=== PATIENT | female | born 1945 | race Caucasian/White ===

== ENCOUNTER → 2017-07-14 | Outpatient (CLI) | payer MEDICARE, BC ==
[2017-07-14 08:04] LABS: Calcium 10.1 mg/dL (8.4-10.2); Potassium 4.8 mmol/L (3.5-5.1); Total Bilirubin 0.9 mg/dL (0.2-1.3); Total Protein 7.2 g/dL (6.3-8.2)
== END | disposition home or self-care (01) ==
LOC: LABWHC1 07:26
PROVIDERS: ATTEND Internal Medicine Interventional Cardiology
DX: E78.2 Mixed hyperlipidemia (principal)
CPT/HCPCS: 36415; 80053; 80061

== ENCOUNTER → 2018-02-09 | Outpatient (CLI) | payer MEDICARE, BC ==
[2018-02-09 09:39] LABS: Albumin 4.3 g/dL (3.5-5.0); Calcium 10.2 mg/dL (8.4-10.2); Potassium 4.4 mmol/L (3.5-5.1); Total Bilirubin 0.6 mg/dL (0.2-1.3); Total Protein 7.1 g/dL (6.3-8.2)
== END | disposition home or self-care (01) ==
LOC: LABWHC1 08:33
PROVIDERS: ATTEND Internal Medicine Interventional Cardiology
DX: E78.2 Mixed hyperlipidemia (principal)
CPT/HCPCS: 36415; 80053; 80061

== ENCOUNTER → 2019-02-06 | Outpatient (CLI) | payer MEDICARE, BC ==
[2019-02-06 16:31] LABS: Albumin 4.5 g/dL (3.80-4.90); Albumin/Globulin Ratio 2.05 (1.60-3.17); Calcium 10.2 mg/dL (8.7-10.3); Globulin 2.2 g/dL (1.6-3.3); LDL Cholesterol,Calculated 115.8 mg/dL (0.0-131.0); Potassium 4.2 mmol/L (3.5-5.5); Total Bilirubin 0.7 mg/dL (0.2-1.2); Total Protein 6.7 g/dL (6.2-8.2); VLDL Calculation 29.2 mg/dL (5.00-40.00)
== END ==
LOC: LABWHC1 08:43
PROVIDERS: ATTEND Nurse Practitioner Adult Health
DX: I48.2 Chronic atrial fibrillation (principal); E78.2 Mixed hyperlipidemia
CPT/HCPCS: 36415; 80053; 80061

== ENCOUNTER → 2019-08-26 | Outpatient (CLI) | payer MEDICARE, BC ==
[2019-08-26 17:16] LABS: Chol/HDL Ratio 5.46; LDL Cholesterol,Calculated 118.4 mg/dL (0.0-131.0); VLDL Calculation 37.6 mg/dL (5.00-40.00)
== END | disposition home or self-care (01) ==
LOC: LABWHC1 08:07
PROVIDERS: ATTEND Nurse Practitioner Adult Health
DX: E78.2 Mixed hyperlipidemia (principal)
CPT/HCPCS: 36415; 80061; 84450; 84460

== ENCOUNTER → 2019-11-26 | Outpatient (CLI) | payer MEDICARE, BC | END | disposition home or self-care (01) | LOC: LABPAT 09:17 | PROVIDERS: ATTEND Orthopaedic Surgery | DX: Z01.812 Encounter for preprocedural laboratory examination (principal) | CPT/HCPCS: 87070 ==

== ENCOUNTER 2019-12-07 06:16 | Inpatient (IN) | payer MEDICARE, BC ==
[2019-11-29 15:02] VITALS: BMI 40.7
--- NOTE | 2019-12-06 10:24 | HP ---
HISTORY AND PHYSICAL CHIEF COMPLAINT: Left shoulder pain. HISTORY OF PRESENT ILLNESS: The patient is a 74-year-old, right-hand dominant, retired female who presents with progressive left shoulder pain over the past several years. She had a previous arthroscopy in 2011. She has pain with any attempted use in addition to significant pain at night. She has tried previous injections and medications with minimal relief. PAST MEDICAL HISTORY: Significant for hypertension, heart disease, atrial fibrillation, osteoarthrosis. PAST SURGICAL HISTORY: Significant for total hip arthroplasty, bilateral total knee arthroplasty, left shoulder arthroscopy, pancreatic surgery, and hysterectomy. CURRENT MEDICATIONS: 1. Atenolol. 2. Digitek. 3. Hyzaar. 4. Lipitor. 5. Mobic. 6. Tramadol. 7. Warfarin. 8. TriCor. ALLERGIES: She has allergies to CODEINE. FAMILY HISTORY: Significant for cancer and Alzheimer's. SOCIAL HISTORY: Significant for previous tobacco use. REVIEW OF SYSTEMS: Sixteen-point review of systems otherwise reviewed and is noncontributory. PHYSICAL EXAMINATION: On examination, the patient is approximately 5 feet 3 inches, 230 pounds of endomorphic habitus. HEENT exam is nonfocal. Neck is supple. On examination of her left shoulder, she is tender about the anterior glenohumeral joint and subacromial space. She has moderate subacromial crepitus. Active range of motion of the left shoulder, forward elevation 40 degrees, external rotation with arm at side 20 degrees, internal rotation to the buttock. Passively I am able to forward elevate her to 80 degrees. Motor strength is 5 minus over 5 for external rotation with the arm at the side. Impingement test, Neer test, and Speed test are positive. She does have some lymphedema in both upper extremities. Her distal neurovascular exam otherwise appears intact in the left upper extremity. X-rays of the left shoulder obtained in the office show irregularity of the humeral head with probable collapse. Previous acromioplasty and distal clavicular resection are noted. IMPRESSION: 1. 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 2. History of atrial fibrillation/pacemaker placement. 3. Medical comorbidities. RECOMMENDATIONS: I talked to the patient at length regarding her condition and treatment options. At this point, she is quite limited because of pain despite previous conservative measures. After thorough discussion, she opts to proceed with surgery. We will plan to proceed with left total shoulder arthroplasty versus reverse total shoulder arthroplasty. Risks and benefits were discussed at length in layman's terms. We will reinstitute her Coumadin postoperatively. She did not undergo preoperative medical and cardiac clearance. JOSE / INGRIDN: [id number] /
[~2019-12-07 06:16] MED LIST: ACETAMINOPHEN TAB 500 MG TAB PO ONE; DEXAMETHASONE SOD PHOSPHATE 10 MG/ML 1 ML VIAL IV ONE; HYDROmorphone 0.5 MG/0.5 ML SYRINGE IVP PRN; LIDOCAINE 1% 20 ML VIAL (10MG/ML) FOR IV START INTRADERMA PRN; MELOXICAM 7.5 MG TAB PO ONE; MIDAZOLAM 2 MG/2 ML VIAL IV PRN; ONDANSETRON 4 MG/2 ML VIAL IVP ONE; SCOPOLAMINE 1.5MG/72HR PATCH TRANSDERM ONE; TRANEXAMIC ACID 1,000 MG in SODIUM CHLORIDE 0.9% 100 ML IVPB ONE
[2019-12-07] MEDS: LACTATED RINGERS 1,000 ML IV SCH (07:20)
[2019-12-07] MEDS ORDERED: fentaNYL (PF) 50 MCG/ML 2 ML AMP IVP ONE (07:25)
[2019-12-07 08:02] LABS: INR 1.2 (<1.2); Prothrombin Time 12.9 sec (9.0-12.0)
[2019-12-07] MEDS ORDERED: NEOSTIGMINE 1 MG/ML 10 ML VIAL ONE (08:05)
[2019-12-07] MEDS ORDERED: ROPIVACAINE 5 MG/ML 30 ML VIAL ONE (08:05)
[2019-12-07] MEDS ORDERED: PHENYLEPHRINE-0.9% NACL SYG 1 MG/10 ML SYRINGE ONE (08:05)
[2019-12-07] MEDS ORDERED: LIDOCAINE 1% INJ 10MG/ML (20 ML MDV) ONE (08:05)
[2019-12-07] MEDS ORDERED: LIDOCAINE 2%-EPI 1:100,000 20 ML VIAL ONE (08:05)
[2019-12-07] MEDS ORDERED: ROCURONIUM BROMIDE 10 MG/ML 10 ML VIAL IV ONE (08:05)
[2019-12-07] MEDS ORDERED: PROPOFOL 10 MG/ML 20 ML VIAL IV ONE (08:05)
[2019-12-07] MEDS ORDERED: GLYCOPYRROLATE 0.2 MG/ML 2 ML VIAL ONE (08:05)
[2019-12-07] MEDS ORDERED: SUCCINYLCHOLINE CHLORIDE VIAL 200 MG/10 ML VIAL IV ONE (08:05)
[2019-12-07] MEDS ORDERED: ceFAZolin 3,000 MG in SODIUM CHLORIDE 0.9% IRRIGATIO 3,000 ML IRRIGATION ONE (08:47)
[2019-12-07] MEDS ORDERED: SENNOSIDES-DOCUSATE SODIUM 1 EACH TAB PO PRN (09:57)
[2019-12-07] MEDS ORDERED: HYDROmorphone 0.5 MG/0.5 ML SYRINGE IVP PRN (09:57)
[2019-12-07] MEDS ORDERED: HYDROcodone/APAP 5-325MG 1 EACH TAB PO PRN ×2 (09:57)
[2019-12-07] MEDS ORDERED: ONDANSETRON 4 MG/2 ML VIAL IVP PRN (09:57)
--- NOTE | 2019-12-07 10:28 | P.OP ---
Date of Procedure: 12/07/19 Preoperative Diagnosis: Left glenohumeral joint arthritissevere Postoperative Diagnosis: Same Procedure(s) Performed: Left total shoulder arthroplasty Implants: [employer] size 8 press-fit humeral stem with size 1 body, 40 x 18 mm eccentric humeral head, 40 mm cemented pegged glenoid. Anesthesia: yoshi RIZZO Surgeon: See Youngblood Assistant Food Service Manager #1: Abebe Valenzuela Estimated Blood Loss (ml): 200 Pathology: other (Humeral head) Condition: stable Disposition: PACU Indications for Procedure: The patient is a 74-year-old female who presents with progressive left shoulder pain secondary to arthritis which is likely a combination of psoriatic and osteoarthrosis despite conservative measures. A discussion of the risks and benefits of operative intervention was made with patient and her . She opted to proceed. Specific risks of surgery to include infection, neurovascular injury, development of blood clots, possible component loosening, possible instability, possible fracture and need for subsequent procedures was discussed. Informed consent was obtained. Operative Findings: As below Description of Procedure: The patient was brought to the operating room, and after induction of general anesthesia was placed in the beachchair position. The bony prominences were appropriately padded. The left upper extremity was prepped and draped in normal fashion. A deltopectoral incision was then made lateral to the coracoid process extending approximately 12 cm. The skin was incised sharply. Subcutaneous tissues were divided bluntly. Electrocautery was used for hemostasis. The deltopectoral interval was identified and the cephalic vein gently retracted laterally with the deltoid. Subdeltoid adhesions were bluntly dissected. A self-retaining retractor was placed. The clavipectoral fascia was opened and the conjoined tendon gently retracted medially. The upper one third of the pectoralis major was released to help facilitate exposure. The biceps was identified and the sheath was opened. The rotator interval was opened. The biceps was tenotomized and allowed to retract distally. The lesser tuberosity osteotomy was performed with a small sagittal saw. This completed with an osteotome. The humeral head was then exposed releasing the capsule off the humeral neck. The shoulder was gently dislocated. A starting hole was made in the head in line with the humeral shaft. The shaft was reamed by hand up to 8 mm. There was good distal chatter. The cutting guide was placed planning on 8 cut flush with the rotator cuff insertion and 30 of retroversion. The cutting block was pinned in place. The humeral head cut was then made. This measured most appropriately at a 40 mm x 18 mm. A posterior glenoid retractor was placed. The glenoid was then exposed releasing the labrum from the 6:00 to 12 o'clock position. Residual labral tissue was removed. The glenoid sized most appropriate 40 mm. A guidewire was then inserted planning on the appropriate version. The glenoid was reamed down to a bleeding bony surface. The central peg hole was drilled. The alignment guide was placed in the peripheral peg holes drilled. The trial size a mm glenoid was placed and was fully seated. There was good anterior to posterior and inferior to superior fit. The trial component was removed. Pulsatile lavage was utilized. The bony surface was dried. The peripheral peg holes were then pressurized with cement utilizing a syringe. Excess cement was removed. A central peg glenoid was then placed and was fully seated. This was gently impacted. This was held in place until the cement had sufficiently hardened. Attention was then paid again towards preparing the proximal humerus. The appropriate broach was placed in 30 of retroversion and was fully seated. An eccentric 40 mm x 18 mm humeral head was placed. The shoulder was gently reduced. It was taken through a range of motion. It was felt to be stable in flexion and extension with internal and external rotation. I felt there was adequate protestant of soft tissue tension. The shoulder was gently dislocated. The trial components were then removed. A #2 Ethibond was placed laterally for reattachment of the lesser tuberosity. The humeral stem was inserted in 30 of retroversion and was fully seated. There was good rotational stability. The eccentric 40 mm x 18 mm humeral head was gently impacted. The shoulder was then gently reduced and taken through range of motion and was felt to be stable. Pulsatile lavage was utilized. Lesser tuberosity was reattached utilizing #2 Ethibond suture. The rotator interval was closed with #2 Ethibond suture. She had minimal drainage at this point therefore a deep drain was not placed. The deltopectoral interval was closed with interrupted 2-0 Vicryl sutures. The subcu tissues were reapproximated with interrupted 2-0 Vicryl sutures. The skin was reapproximated with 3-0 subcuticular Prolene suture. Steri-Strips were applied. A sterile dressing was applied in addition to a sling. The patient was then awoken from general anesthesia and transferred to recovery room in good condition. Blood l oss was estimated at 200 mL. No complications were incurred. Sponge and needle counts were correct at the end the case. Checo SCALES assisted during the major components the case to include exposure, bony resection, implantation, and closure.
[2019-12-07] MEDS ORDERED: LACTATED RINGERS 1,000 ML IV ONE ×2 (10:45)
--- NOTE | 2019-12-07 11:01 | XR ---
EXAMINATION TYPE: XR shoulder complete LT DATE OF EXAM: 12/07/2019 COMPARISON: NONE HISTORY: Postop TECHNIQUE: 2 view submitted FINDINGS: Postsurgical change appears in near-anatomic alignment. Cardiac device incidentally noted. Soft tissue edema and emphysema noted. IMPRESSION: Postoperative change
[2019-12-07 11:21] LABS: Basophils # (A) 0.1 k/uL (0-0.2); Basophils % (A) 1 %; Eosinophils # (A) 0.3 k/uL (0-0.7); Eosinophils % (A) 3 %; HCT 37.4 % (34.0-46.0); HGB 12.1 gm/dL (11.4-16.0); Lymphocytes # (A) 1.9 k/uL (1.0-4.8); Lymphocytes % (A) 19 %; MCH 29.4 pg (25.0-35.0); MCHC 32.3 g/dL (31.0-37.0); MCV 90.9 fL (80.0-100.0); Monocytes # (A) 0.6 k/uL (0-1.0); Monocytes % (A) 6 %; Neutrophils # (A) 6.8 k/uL (1.3-7.7); Neutrophils % (A) 70 %; Platelet Count 223 k/uL (150-450); RBC 4.11 m/uL (3.80-5.40); RDW 14.1 % (11.5-15.5); WBC 9.8 k/uL (3.8-10.6)
--- NOTE | 2019-12-07 12:18 | P.ANPRN ---
Procedure Note - Anesthesia - Nerve Block Performed Left Interscalene Single Time Out Performed: Yes ([id number]) Date of Procedure: 12/07/19 Procedure Start Time: : Procedure Stop Time: Location of Patient: PreOp Indication: Acute Post-Operative Pain, Requested by Surgeon Specifically requested for management of pain by : See Youngblood Sedation Type: Sedate with meaningful contact maintained Preparation: Sterile Prep Position: Supine Catheter: None Needle Types: Pajunk Needle Gauge: 21 Ultrasound used to visualize needle placement: Yes Ultrasound used to observe medication spread: Yes Injectate: Other (see comment) (Ropi 0.25% 15cc and Lido 2% with epi 15cc) Blood Aspirated: No Pain Paresthesia on Injection Noted: No Resistance on Injection: Normal Image Stored and Saved: Yes Events: Uneventful and Well Tolerated
[2019-12-07] MEDS: traMADol 50 MG TAB PO SCH ×3 (14:49→22:43)
[2019-12-07] MEDS ORDERED: WARFARIN 5 MG TAB PO ONE (18:00)
[2019-12-07 22:36] LABS: INR 1.2 (<1.2); Prothrombin Time 12.1 sec (9.0-12.0)
[2019-12-08] MEDS: LACTATED RINGERS 1,000 ML IV SCH (05:27)
[2019-12-08 08:11] VITALS: BP 135/104; PULSE 83; RESP 17; TEMP 98
[2019-12-08] MEDS: traMADol 50 MG TAB PO SCH (08:27)
[2019-12-08] MEDS ORDERED: ENOXAPARIN 40 MG/0.4 ML SYRINGE SQ SCH (09:00)
[2019-12-08 09:15] LABS: Basophils # (A) 0.1 k/uL (0-0.2); Basophils % (A) 1 %; Eosinophils % (A) 0 %; HCT 36.1 % (34.0-46.0); Lymphocytes # (A) 1.1 k/uL (1.0-4.8); Lymphocytes % (A) 10 %; MCH 29.4 pg (25.0-35.0); MCHC 33.2 g/dL (31.0-37.0); MCV 88.5 fL (80.0-100.0); Mean Platelet Volume 9.5; Monocytes # (A) 0.6 k/uL (0-1.0); Monocytes % (A) 5 %; Neutrophils # (A) 9.6 k/uL (1.3-7.7); Neutrophils % (A) 84 %; Platelet Count 255 k/uL (150-450); RBC 4.08 m/uL (3.80-5.40); WBC 11.5 k/uL (3.8-10.6)
--- NOTE | 2019-12-08 11:51 | P.PN ---
Subjective Progress Note Date: 12/08/19 Principal diagnosis: status post left total shoulder arthroplasty Patient evaluated at bedside, she is resting comfortably. She has no chest pain or shortness of breath. Pain is well-controlled at this time. Objective - Vital Signs Vital signs: Vital Signs Temp 98.0 F 12/08/19 07:00 Pulse 83 12/08/19 07:00 Resp 17 12/08/19 07:00 BP 135/104 12/08/19 07:00 Pulse Ox 98 12/08/19 07:00 Intake & Output 12/07/19 12/08/19 12/08/19 18:59 06:59 18:59 Intake Total 1501 20 150 Output Total 200 Balance 1301 20 150 Weight 101.8 kg Intake: IV 1501 Oral 20 150 Output: Estimated Blood Loss 200 - Exam Left lower extremity: Postoperative bandages in good position and condition. Minimal soft tissue swelling or ecchymosis present. Sensation to light touch is intact, radial pulses 2+ - Labs CBC & Chem 7: 12/08/19 08:10 Labs: Abnormal Lab Results - Last 24 Hours (Table) 12/07/19 12/08/19 Range/Units 21:57 08:10 WBC 11.5 H (3.8-10.6) k/uL Neutrophils # 9.6 H (1.3-7.7) k/uL PT 12.1 H (9.0-12.0) sec INR 1.2 H (<1.2) Assessment and Plan Plan: Assessment: Postoperative day #1 status post left total shoulder arthroplasty Plan: Pain control, discharge on oral medication GI and DVT prophylaxis, resume Coumadin Wound care instructions discussed Activity level instructions discussed Medical recommendations Plan for discharge home today Time with Patient: Less than 30
--- NOTE | 2019-12-08 11:58 | P.DS ---
Providers Date of admission: 12/07/19 06:16 Expected date of discharge: 12/08/19 Attending physician: See Youngblood Consults: 12/07/19 10:03 Consult Physician Routine Consulting Provider: Kt Hernandez Reason/Comments: Medical Management Do you want consulting provider notified?: Yes Primary care physician: Kt Hernandez Hospital Course: Date of admission: 12/07/2019 Date of discharge: 12/08/2019 Admission diagnosis: Status post left total shoulder arthroplasty Discharge diagnosis: Same Attending physician: Dr. Youngblood Surgical procedures: Left total shoulder arthroplasty Brief history: Patient is a 74-year-old female with a history of progressive primary left shoulder osteoarthritis. She has failed conservative treatment measures and has opted to proceed with a elective left total shoulder arthroplasty. Hospital course: Details of patient's surgery can be found in operative report. Patient tolerated the procedure well and was subsequently transported to [facility] floor. Patient's orthopeidc and medical care was provided daily. Patient had daily laboratory tests performed for evaluation of overall blood counts. Patient had daily physical therapy to include strengthening range of motion as well as education with walker ambulation. Patient was treated with Lovenox and Coumadin for their postoperative DVT prophylaxis during their inpatient stay. Patient was noted to have a relatively uneventful postoperative course. Patient reported satisfactory pain control with oral pain medications by postoperative day 0. Patient showed satisfactory progress with physical therapy. Patient moved steadily through the program and had no difficulty meeting the goals by postoperative day 1. Given patient's otherwise satisfactory course and having met physical therapy goals, plan is to discharge patient home on postoperative day 1. Discharge condition/disposition: Patient will be discharged home in stable condition. Discharge medications: Instructions are given on resumption of patient's normal daily medications per primary care recommendation, in addition patient will be prescribed [place] 5 mg/325 mg. Discharge instructions: 1. Wound care and infection precautions, keep incision dry and covered while showering, no lotions, creams, moisturizers. No soaking, tubs, pools, hottubs. Do not scrub over the incision. 2. Utilize arm sling as needed 3. Ice and elevate when necessary. Do not exceed 20 minutes per hour with ice pack. 4. Utilize compression sleeve until seen at first follow up appointment. 7. Pain meds and anticoagulants per prescription. 8. Pain medication has potential to cause constipation. Increase oral fluid and fiber intake. Contact primary care provider if you have not had a bowel movement within 48 hours after discharge 9. No anti-inflammatory medication until discussed at first post operative visit, this including Motrin, Aleve, Mobic, Diclofenac. 10. Follow up in office at 2 weeks postop with Checo Valenzuela PA-C 11. Follow up with your primary care doctor 7-10 days after discharge. 12. Contact [facility] with any questions, . Procedures: Left total shoulder arthroplasty Patient Condition at Discharge: Good Plan - Discharge Summary Discharge Rx Participant: No New Discharge Prescriptions: New Sennosides-Docusate Sodium [Senokot-S] 2 each PO HS PRN #0 tab PRN Reason: Constipation Hydrocodone/Acetaminophen [[place] 5-325] 1 each PO Q6HR PRN #28 tab PRN Reason: Pain Continue Warfarin Sodium 2.5 mg PO WE Warfarin [Coumadin] 5 mg PO SUMOTUTHFRSA Losartan/Hydrochlorothiazide [Losartan-Hctz 100-25 mg Tab] 1 tab PO HS Digoxin [Digitek] 125 mcg PO DAILY Atorvastatin [Lipitor] 80 mg PO HS traMADol HCl [Ultram] 50 mg PO BID Metoprolol Tartrate [Lopressor] 50 mg PO BID Ezetimibe [Zetia] 10 mg PO DAILY Meloxicam 15 mg PO DAILY Clobetasol Propionate [Temovate 0.05% Cream] 1 applic TOPICAL SUSA Calcipotriene 1 applicate TOPICAL MOTUWETHFR Discharge Medication List Atorvastatin [Lipitor] 80 mg PO HS 08/30/15 [History] Digoxin [Digitek] 125 mcg PO DAILY 08/30/15 [History] Losartan/Hydrochlorothiazide [Losartan-Hctz 100-25 mg Tab] 1 tab PO HS 08/30/15 [History] Warfarin Sodium 2.5 mg PO WE 08/30/15 [History] Warfarin [Coumadin] 5 mg PO SUMOTUTHFRSA 08/30/15 [History] Calcipotriene 1 applicate TOPICAL MOTUWETHFR 11/29/19 [History] Clobetasol Propionate [Temovate 0.05% Cream] 1 applic TOPICAL SUSA 11/29/19 [History] Ezetimibe [Zetia] 10 mg PO DAILY 11/29/19 [History] Meloxicam 15 mg PO DAILY 11/29/19 [History] Metoprolol Tartrate [Lopressor] 50 mg PO BID 11/29/19 [History] traMADol HCl [Ultram] 50 mg PO BID 11/29/19 [History] Hydrocodone/Acetaminophen [[place] 5-325] 1 each PO Q6HR PRN #28 tab 12/08/19 [Rx] Sennosides-Docusate Sodium [Senokot-S] 2 each PO HS PRN #0 tab 12/08/19 [Rx] Follow up Appointment(s)/Referral(s): Kt Hernandez DO [Primary Care Provider] - 12/16/19 1:00 pm Abebe Valenzuela PAC [PHYSICIAN SHOE DYER] - 12/22/19 2:50 pm Ambulatory/Diagnostic Orders: Prothrombin Time INR [LAB.AMB] Time Frame: 12/10/19, Location: None Selected Patient Instructions/Handouts: Shoulder Arthroplasty (DC) Activity/Diet/Wound Care/Special Instructions: Orthopedic discharge instructions: 1. Resume home medication of discharge 2. Pain medication as needed 3. Keep incision covered and dry while showering 4. Utilize arm sling 5. Ice and elevate often 6. Plan for follow-up at [facility] 2 weeks Discharge Disposition: HOME WITH HOME HEALTH SERVICES
[2019-12-08] MEDS ORDERED: WARFARIN 5 MG TAB PO ONE (18:00)
--- NOTE | 2019-12-09 12:46 | P.CONS ---
History of Present Illness - Reason for Consult Consult date: 12/08/19 Medical management HTN, Requesting physician: See Youngblood - Chief Complaint Worsening Left shoulder pain - History of Present Illness This is a 74-year-old female with history of atrial fibrillation, CVA/TIA, hyperlipidemia, hypertension, osteoarthritis, psoriasis, permanent pacemaker, former nicotine dependence ,progressive left shoulder pain secondary to osteoarthritis, failed outpatient treatment,status post left total shoulder arthroplasty. Tolerated procedure well. Wearing a shoulder sling. INR 1.2. Good diet intake with no nausea vomiting or diarrhea. Passing flatus, no bowel movement. Denies chest pain, palpitations or shortness of breath. Pain cont rolled. Denies lightheadedness, dizziness or focal deficits. Review of Systems Constitutional: Denied any fatigue denied any fever. Cardio vascular: denied any chest pain, palpitations Gastrointestinal denied any nausea vomiting Pulmonary: Denied any shortness of breath cough Neurologic denied any new focal deficits ROS Statement: Those systems with pertinent positive or pertinent negative responses have been documented in the HPI. ROS Other: All systems not noted in ROS Statement are negative. 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 PSORIASIS. PT USES SCD'S BILAT LEGS TWICE A DAY FOR 1 HOUR EACH TIME History of Any Multi-Drug Resistant Organisms: None Reported Past Surgical History: Hysterectomy, Joint Replacement, Orthopedic Surgery, Pacemaker Additional Past Surgical History / Comment(s): BILAT TKA, 09-02-16. TOTAL RT HIP. LT SHOULDER SX. BILAT CATARACTS. COLONOSCOPY. GENERATOR CHANGES TO PACEMAKER X 2. KNEE SCOPE. D & C Past Anesthesia/Blood Transfusion Reactions: Motion Sickness Additional Past Anesthesia/Blood Transfusion Reaction / Comm: VERTIGO Type of Cardiac Device: Permanent Pacemaker Device Placement Date:: 1996 Past Psychological History: No Psychological Hx Reported Smoking Status: Former smoker Past Alcohol Use History: None Reported Additional Past Alcohol Use History / Comment(s): SMOKES FROM AGE [age] THEN QUIT Past Drug Use History: None Reported - Past Family History Mother Family Medical History: No Reported History Sister(s) Family Medical History: Cancer Father Family Medical History: No Reported History Additional Family Medical History / Comment(s): ELECTROCUTED AT AGE 38 Medications and Allergies Home Medications Medication Instructions Recorded Confirmed Type Atorvastatin [Lipitor] 80 mg PO HS 08/30/15 12/07/19 History Digoxin [Digitek] 125 mcg PO DAILY 08/30/15 12/07/19 History Losartan/Hydrochlorothiazide 1 tab PO HS 08/30/15 12/07/19 History [Losartan-Hctz 100-25 mg Tab] Warfarin Sodium 2.5 mg PO WE 08/30/15 12/07/19 History Warfarin [Coumadin] 5 mg PO SUMOTUTHFRSA 08/30/15 12/07/19 History Calcipotriene 1 applicate TOPICAL MOTUWETHFR 11/29/19 12/07/19 History Clobetasol Propionate [Temovate 1 applic TOPICAL SUSA 11/29/19 12/07/19 History 0.05% Cream] Ezetimibe [Zetia] 10 mg PO DAILY 11/29/19 12/07/19 History Meloxicam 15 mg PO DAILY 11/29/19 12/07/19 History Metoprolol Tartrate [Lopressor] 50 mg PO BID 11/29/19 12/07/19 History traMADol HCl [Ultram] 50 mg PO BID 11/29/19 12/07/19 History Hydrocodone/Acetaminophen [[place] 1 each PO Q6HR PRN #28 tab 12/08/19 Rx 5-325] Sennosides-Docusate Sodium 2 each PO HS PRN #0 tab 12/08/19 Rx [Senokot-S] Allergies Allergy/AdvReac Type Severity Reaction Status Date / Time codeine Allergy Rash/Hives Verified 12/07/19 07:05 Physical Exam Vitals: Vital Signs Temp Pulse Pulse Resp BP BP Pulse Ox 12/08/19 07:00 98.0 F 83 17 135/104 98 12/08/19 05:28 80 133/97 96 12/08/19 03:57 175/75 12/08/19 02:27 181/83 12/08/19 01:18 98 F 96 18 198/70 96 12/07/19 19:56 97.7 F 85 16 145/93 92 L 12/07/19 15:00 97.7 F 70 16 153/74 92 L 12/07/19 13:30 70 16 154/71 96 12/07/19 13:00 62 16 152/83 95 12/07/19 12:30 60 16 152/67 96 12/07/19 12:01 57 L 14 150/65 94 L 12/07/19 11:45 64 16 149/63 95 12/07/19 11:30 57 L 16 147/65 95 12/07/19 11:04 73 16 157/73 95 12/07/19 10:49 62 18 163/72 96 12/07/19 10:34 75 16 143/73 96 12/07/19 10:19 97.0 F L 76 18 143/74 93 L Intake and Output 12/07/19 12/08/19 12/08/19 22:59 06:59 14:59 Intake Total 20 150 Balance 20 150 Intake: Oral 20 150 PHYSICAL EXAM: VITAL SIGNS: As above GENERAL: Sitting up in bed, no acute distress HEENT: Conjunctivae normal. eyes normal. Oral mucosa moist NECK: No JVD. No thyroid enlargement. No LNs. Left shoulder sling present. CARDIOVASCULAR: S1, S2 regular. No murmur RESPIRATION: Breath sounds diminished in the bases. No rhonchi or crackles. No bronchial breathing. ABDOMEN: Soft, nontender . No guarding. no masses palpable. No ascites, No hepatosplenomegaly.Bowel sounds heard. PSYCHIATRY: Alert and oriented X3, mood and affect normal. NERVOUS SYSTEM: Cranial N 2-12 grossly normal. Moves all 4 limbs. No focal deficits. Strength and sensation grossly intact.. Skin: no rash Lymphatic system. No LN neck axilla. Results CBC & Chem 7: 12/08/19 08:10 Labs: Abnormal Lab Results - Last 24 Hours (Table) 12/07/19 12/08/19 Range/Units 21:57 08:10 WBC 11.5 H (3.8-10.6) k/uL Neutrophils # 9.6 H (1.3-7.7) k/uL PT 12.1 H (9.0-12.0) sec INR 1.2 H (<1.2) Assessment and Plan Assessment: Left shoulder arthroplasty secondary to progressive severe left shoulder osteoarthritis, failed conservative measures. Chronic atrial fibrillation Pacemaker History of CVA, TIA Hyperlipidemia Hypertension psoriasis Former nicotine dependence Vertigo Plan: Continue on current medication regime ,monitoring and symptomatic treatment. Pain management as per orthopedic surgery. Discharge planning in progress. Resume anticoagulation with Coumadin, when cleared by orthopedics. Follow-up with PCP in one week. The impression and plan of care has been dictated as directed. : I performed a history and examination of this patient, discussed the same with the dictator. I agree with the dictator's note ,documented as a scribe. Any additional findings or plans will be noted.
== END 2019-12-08 12:49 | disposition home or self-care (01) | DRG 483 ==
LOC: 2ORMAIN 06:16 → 4SSUR 13:42
PROVIDERS: ADMIT Orthopaedic Surgery; ATTEND Orthopaedic Surgery
PROC: 0RRK0JZ Replacement of Left Shoulder Joint with Synthetic Substitute, Open Approach (ICD-10-PCS; principal; 2019-12-07 08:00)
DX: M19.012 Primary osteoarthritis, left shoulder (principal); I48.19 Other persistent atrial fibrillation; L40.50 Arthropathic psoriasis, unspecified; I08.3 Combined rheumatic disorders of mitral, aortic and tricuspid valves; E78.2 Mixed hyperlipidemia; I10 Essential (primary) hypertension; L40.9 Psoriasis, unspecified; Z79.01 Long term (current) use of anticoagulants; Z79.1 Long term (current) use of non-steroidal anti-inflammatories (NSAID); Z79.891 Long term (current) use of opiate analgesic; Z79.899 Other long term (current) drug therapy; Z96.653 Presence of artificial knee joint, bilateral; Z95.0 Presence of cardiac pacemaker; Z87.891 Personal history of nicotine dependence; Z96.641 Presence of right artificial hip joint; Z90.710 Acquired absence of both cervix and uterus; Z80.9 Family history of malignant neoplasm, unspecified; Z82.0 Family history of epilepsy and other diseases of the nervous system
CPT/HCPCS: 64415; 76942; 85025; 85610; 88300

== ENCOUNTER → 2020-06-27 | Outpatient (CLI) | payer MEDICARE, BC ==
[2020-06-27 16:32] LABS: African American GFR (CKD) 57.3 (60.0-200.0); Albumin 4.5 g/dL (3.80-4.90); Albumin/Globulin Ratio 2.05 (1.60-3.17); Anion Gap 8.6 mmol/L (4.00-12.00); BUN/Creat Ratio 27.27 Ratio (12.00-20.00); Calcium 10.3 mg/dL (8.7-10.3); Carbon Dioxide 26.4 mmol/L (21.6-31.8); Chol/HDL Ratio 5.19; Globulin 2.2 g/dL (1.6-3.3); LDL Cholesterol,Calculated 59.8 mg/dL (0.0-131.0); Non-African American GFR(CKD) 49.4 (60.0-200.0); Potassium 4.6 mmol/L (3.5-5.5); Total Bilirubin 1.2 mg/dL (0.2-1.2); Total Protein 6.7 g/dL (6.2-8.2); VLDL Calculation 53.2 mg/dL (5.00-40.00)
== END | disposition home or self-care (01) ==
LOC: LABWHC1 10:13
PROVIDERS: ATTEND Nurse Practitioner Adult Health
DX: I10 Essential (primary) hypertension (principal); E78.2 Mixed hyperlipidemia; I48.21 Permanent atrial fibrillation
CPT/HCPCS: 36415; 80053; 80061

== ENCOUNTER → 2021-07-18 | Outpatient (CLI) | payer MEDICARE, BC ==
[2021-07-18 18:26] LABS: African American GFR (CKD) 56.9 (60.0-200.0); Albumin 4.9 g/dL (3.80-4.90); Albumin/Globulin Ratio 1.96 (1.60-3.17); Anion Gap 11.7 mmol/L (4.00-12.00); BUN/Creat Ratio 32.73 Ratio (12.00-20.00); Calcium 10.1 mg/dL (8.7-10.3); Carbon Dioxide 26.3 mmol/L (21.6-31.8); Chol/HDL Ratio 5.27; Globulin 2.5 g/dL (1.6-3.3); Non-African American GFR(CKD) 49.1 (60.0-200.0); Potassium 4.6 mmol/L (3.5-5.5); Total Bilirubin 1.3 mg/dL (0.2-1.2); Total Protein 7.4 g/dL (6.2-8.2)
[2021-07-18 19:54] LABS: Digoxin 0.8 ng/mL (0.8-2.0)
== END | disposition home or self-care (01) ==
LOC: LABWHC1 08:22
PROVIDERS: ATTEND Internal Medicine Interventional Cardiology
DX: E78.2 Mixed hyperlipidemia (principal)
CPT/HCPCS: 36415; 80053; 80061; 80162

== ENCOUNTER → 2022-02-04 | Outpatient (CLI) | payer MEDICARE, BC ==
[2022-02-04 17:35] LABS: ALT 23 U/L (8-44); AST 49 U/L (13-35); African American GFR (CKD) 57.5 (60.0-200.0); Albumin 4.5 g/dL (3.8-4.9); Albumin/Globulin Ratio 1.48 (1.60-3.17); Alkaline Phosphatase 78 U/L (41-126); BUN/Creat Ratio 24.13 Ratio (12.00-20.00); Blood Urea Nitrogen 26.3 mg/dL (9.0-27.0); Calcium 10.6 mg/dL (8.7-10.3); Carbon Dioxide 15.3 mmol/L (20.0-27.5); Chloride 105 mmol/L (96-109); Chol/HDL Ratio 3.98 Ratio; Glucose 94 mg/dL (70-110); LDL Cholesterol,Calculated 72.6 mg/dL (0.0-131.0); Non-African American GFR(CKD) 49.6 (60.0-200.0); Potassium 4.6 mmol/L (3.5-5.5); Sodium 140 mmol/L (135-145); Total Protein 7.5 g/dL (6.2-8.2)
== END | disposition home or self-care (01) ==
LOC: LABWHC1 08:42
PROVIDERS: ATTEND Nurse Practitioner Adult Health
DX: I10 Essential (primary) hypertension (principal); E78.2 Mixed hyperlipidemia
CPT/HCPCS: 36415; 80053; 80061

== ENCOUNTER → 2022-10-30 | Outpatient (CLI) | payer MEDICARE, BC ==
[2022-10-30 10:49] LABS: Prothrombin Time 81.1 sec (9.0-12.0)
== END | disposition home or self-care (01) ==
LOC: LABWHC1 09:55
PROVIDERS: ATTEND Nurse Practitioner Adult Health
DX: I48.21 Permanent atrial fibrillation (principal)
CPT/HCPCS: 36415; 85610

== ENCOUNTER 2023-04-28 19:36 | Emergency (ER) | payer MEDICARE, BC ==
[2023-04-28 20:01] VITALS: RESP 18
--- NOTE | 2023-04-28 20:26 | ED ---
Extremity Problem HPI - General Chief complaint: Extremity Problem,Nontraumatic Stated complaint: UNK BRUISE-RT LEG Time Seen by Provider: 04/28/23 20:07 Source: patient, RN notes reviewed, old records reviewed Mode of arrival: ambulatory Limitations: no limitations - History of Present Illness Initial comments: Nontoxic-appearing 78-year-old female presents to the emergency room with complaints of right lower extremity swelling with large area of bruising after removing her lymphedema wraps this evening. Patient denies any pain. States that she is on Coumadin and is due to have her levels checked on May [address] Dale. Denies any other abnormal bleeding. She has been using her lymphedema wraps for the past 5 years with no complications. States that the right leg remains swollen with pain around the bruising site which has her concerned. MD Complaint: extremity swelling (right lower) -: days(s) (1) Location: right, lower extremity History of Same: Yes Severity scale (1-10): 0 Associated Symptoms: denies other symptoms - Related Data Home Medications Medication Instructions Recorded Confirmed Atorvastatin [Lipitor] 80 mg PO HS 08/30/15 12/07/19 Digoxin [Digitek] 125 mcg PO DAILY 08/30/15 12/07/19 Losartan/Hydrochlorothiazide 1 tab PO HS 08/30/15 12/07/19 [Losartan-Hctz 100-25 mg Tab] Warfarin Sodium 2.5 mg PO WE 08/30/15 12/07/19 Warfarin [Coumadin] 5 mg PO SUMOTUTHFRSA 08/30/15 12/07/19 Calcipotriene 1 applicate TOPICAL MOTUWETHFR 11/29/19 12/07/19 Clobetasol Propionate [Temovate 1 applic TOPICAL SUSA 11/29/19 12/07/19 0.05% Cream] Ezetimibe [Zetia] 10 mg PO DAILY 11/29/19 12/07/19 Meloxicam 15 mg PO DAILY 11/29/19 12/07/19 Metoprolol Tartrate [Lopressor] 50 mg PO BID 11/29/19 12/07/19 traMADol HCl [Ultram] 50 mg PO BID 11/29/19 12/07/19 Previous Rx's Medication Instructions Recorded Hydrocodone/Acetaminophen [Hester 1 each PO Q6HR PRN #28 tab 12/08/19 5-325] Sennosides-Docusate Sodium 2 each PO HS PRN #0 tab 12/08/19 [Senokot-S] Allergies Allergy/AdvReac Type Severity Reaction Status Date / Time codeine Allergy Rash/Hives Verified 04/28/23 19:57 Review of Systems ROS Statement: Those systems with pertinent positive or pertinent negative responses have been documented in the HPI. ROS Other: All systems not noted in ROS Statement are negative. 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 PSORIASIS History of Any Multi-Drug Resistant Organisms: None Reported Past Surgical History: Hysterectomy, Joint Replacement, Orthopedic Surgery, Pacemaker Additional Past Surgical History / Comment(s): BILAT TKA, 09-02-16 TOTAL RT HIP. LT SHOULDER SX. BILAT CATARACTS. COLONOSCOPY Past Anesthesia/Blood Transfusion Reactions: Motion Sickness Additional Past Anesthesia/Blood Transfusion Reaction / Comment(s): VERTIGO Type of Cardiac Device: Permanent Pacemaker Device Placement Date:: 1996 Past Psychological History: No Psychological Hx Reported Past Alcohol Use History: None Reported Past Drug Use History: None Reported - Past Family History Mother Family Medical History: No Reported History Sister(s) Family Medical History: Cancer Father Family Medical History: No Reported History Additional Family Medical History / Comment(s): ELECTROCUTED AT AGE 38 General Exam Limitations: no limitations General appearance: alert, in no apparent distress Head exam: Present: atraumatic Eye exam: Present: normal appearance, EOMI. Absent: scleral icterus, conjunctival injection, periorbital swelling Neck exam: Present: full ROM. Absent: tenderness, meningismus Respiratory exam: Absent: respiratory distress, accessory muscle use Cardiovascular Exam: Present: regular rate Left Upper Leg exam: Absent: tenderness Knee exam: Present: full ROM. Absent: tenderness Lower Leg exam: Present: full ROM, swelling. Absent: tenderness Ankle exam: Present: full ROM. Absent: tenderness Foot/Toe exam: Present: full ROM. Absent: tenderness Neurovascular tendon exam: Present: no vascular compromise. Absent: abnormal cap refill, pallor, foot drop Right Knee exam: Present: swelling. Absent: tenderness Lower Leg exam: Present: full ROM, tenderness, swelling, ecchymosis (Medial aspect lower leg). Absent: erythema, palpable cord, Homans' sign Ankle exam: Present: full ROM. Absent: tenderness, erythema Foot/Toe exam: Present: full ROM. Absent: tenderness Neurovascular tendon exam: Present: no vascular compromise. Absent: abnormal cap refill, extremity cold to touch, pallor, foot drop Neurological exam: Present: alert, oriented X3 Psychiatric exam: Present: normal affect, normal mood Skin exam: Present: warm, dry, normal color. Absent: cyanosis, diaphoretic, petechiae, pallor Course Vital Signs 04/28/23 04/28/23 19:58 22:42 Temperature 98 F 97.7 F Pulse Rate 70 57 L Respiratory 18 18 Rate Blood Pressure 168/85 144/84 O2 Sat by Pulse 98 96 Oximetry Medical Decision Making - Medical Decision Making Was pt. sent in by a medical professional or institution (LOYDA Thomas, CLINICAL AIDE, urgent care, hospital, or [facility]...) When possible be specific @ -No Did you speak to anyone other than the patient for history (EMS, parent, family, police, friend...)? What history was obtained from this source @ -No Did you review nursing and triage notes (agree or disagree)? Why? @ -I reviewed and agree with nursing and triage notes Were old charts reviewed (outside hosp., previous admission, EMS record, old EKG, old radiological studies, urgent care reports/EKG's, [facility] records)? Report findings @ -No old charts were reviewed Differential Diagnosis (chest pain, altered mental status, abdominal pain women, abdominal pain men, vaginal bleeding, weakness, fever, dyspnea, syncope, headache, dizziness, GI bleed, back pain, seizure, CVA, palpatations, mental health, musculoskeletal)? @ -DVT, lymphedema, cellulitis, congestive heart failure, coagulopathies, hematoma EKG interpreted by me (3pts min.). @ -n/a X-rays interpreted by me (1pt min.). @ -None done CT interpreted by me (1pt min.). @ -None done U/S interpreted by me (1pt. min.). @ -no What testing was considered but not performed or refused? (CT, X-rays, U/S, labs)? Why? @ -None What meds were considered but not given or refused? Why? @ -None Did you discuss the management of the patient with other professionals (professionals i.e. DrRaji, PA, CLINICAL AIDE, lab, RT, psych nurse, social service manager, geological survey field assistant, teacher, civil preparedness officer, case liner)? Give summary @ -No Was smoking cessation discussed for >3mins.? @ -No Was critical care preformed (if so, how long)? @ -No Were there social determinants of health that impacted care today? How? (Homelessness, low income, unemployed, alcoholism, drug addiction, transportation, low edu. Level, literacy, decrease access to med. care, prison, rehab)? @ -No Was there de-escalation of care discussed even if they declined (Discuss DNR or withdrawal of care, Hospice)? DNR status @ -No What co-morbidities impacted this encounter? (DM, HTN, Smoking, COPD, CAD, Cancer, CVA, ARF, Chemo, Hep., AIDS, mental health diagnosis, sleep apnea, morbid obesity)? @ -Patient has a history of A. fib, CVA, hypertension, osteoarthritis, hyperlipidemia, bilateral knee replacements in lymphedema Was patient admitted / discharged? Hospital course, mention meds given and route, prescriptions, significant lab abnormalities, going to OR and other pertinent info. @ -Discharge. Nontoxic-appearing 78-year-old female presents to the emergency room with complaints of right lower extremity swelling with large area of bruising after removing her lymphedema wraps this evening. Patient denies any pain. States that she is on Coumadin and is due to have her levels checked on May [address] Dale. Denies any other abnormal bleeding. She has been using her lymphedema wraps for the past 5 years with no complications. States that the right leg remains swollen with pain around the bruising site which has her concerned. CBC unremarkable. INR 3.0. Ultrasound shows no evidence of DVT. Subcutaneous edema throughout the leg. Patient does have a history of lymphedema. She was directed to follow up with her primary care doctor or return to the emergency room with a normal concerning symptoms. . Case discussed with Dr. Torres Undiagnosed new problem with uncertain prognosis? @ -No Drug Therapy requiring intensive monitoring for toxicity (Heparin, Nitro, Insulin, Cardizem)? @ -No Were any procedures done? @ -No Diagnosis/symptom? @ -Lymphedema, hematoma Acute, or Chronic, or Acute on Chronic? @ -Acute on chronic Uncomplicated (without systemic symptoms) or Complicated (systemic symptoms)? @ -default Side effects of treatment? @ -No Exacerbation, Progression, or Severe Exacerbation? @ -No Poses a threat to life or bodily function? How? (Chest pain, [place], [place], pneumonia, PE, COPD, DKA, ARF, appy, cholecystitis, CVA, Diverticulitis, Homicidal, Suicidal, threat to staff... and all critical care pts) @ -No - Lab Data Result diagrams: 04/28/23 20:35 04/28/23 20:35 Lab Results 04/28/23 04/28/23 04/28/23 Range/Units 20:35 20:35 20:35 WBC 6.9 (3.8-10.6) k/uL RBC 4.16 (3.80-5.40) m/uL Hgb 12.2 (11.4-16.0) gm/dL Hct 37.4 (34.0-46.0) % MCV 90.0 (80.0-100.0) fL MCH 29.4 (25.0-35.0) pg MCHC 32.7 (31.0-37.0) g/dL RDW 14.6 (11.5-15.5) % Plt Count 211 (150-450) k/uL MPV 7.8 Neutrophils % 70 % Lymphocytes % 19 % Monocytes % 7 % Eosinophils % 3 % Basophils % 1 % Neutrophils # 4.8 (1.3-7.7) k/uL Lymphocytes # 1.3 (1.0-4.8) k/uL Monocytes # 0.5 (0-1.0) k/uL Eosinophils # 0.2 (0-0.7) k/uL Basophils # 0.0 (0-0.2) k/uL PT 29.0 H (9.0-12.0) sec INR 3.0 H (<1.2) APTT 37.2 H (22.0-30.0) sec Sodium 140 (137-145) mmol/L Potassium 4.3 (3.5-5.1) mmol/L Chloride 103 (98-107) mmol/L Carbon Dioxide 27 (22-30) mmol/L Anion Gap 10 mmol/L BUN 31 H (7-17) mg/dL Creatinine 1.32 H (0.52-1.04) mg/dL Est GFR (CKD-EPI)AfAm 45 (>60 ml/min/1.73 sqM) Est GFR (CKD-EPI)NonAf 39 (>60 ml/min/1.73 sqM) Glucose 108 H (74-99) mg/dL Calcium 9.9 (8.4-10.2) mg/dL Total Bilirubin 1.6 H (0.2-1.3) mg/dL AST 28 (14-36) U/L ALT 23 (4-34) U/L Alkaline Phosphatase 75 (38-126) U/L Total Protein 7.3 (6.3-8.2) g/dL Albumin 4.5 (3.5-5.0) g/dL Disposition Clinical Impression: Superficial bruising of lower leg, Lymphedema Disposition: HOME SELF-CARE Condition: Good Instructions (If sedation given, give patient instructions): Ecchymosis (ED) Additional Instructions: Follow-up with the primary care doctor this week. Keep your appointment scheduled with the tool worker on the fifth. Return to the emergency room with any new or concerning symptoms including pain or discoloration. Is patient prescribed a controlled substance at d/c from ED?: No Referrals: Kt Hernandez DO [Primary Care Provider] - 1-2 days Time of Disposition: 22:22
[2023-04-28 21:22] LABS: Basophils % (A) 1 %; Eosinophils # (A) 0.2 k/uL (0-0.7); Eosinophils % (A) 3 %; HCT 37.4 % (34.0-46.0); HGB 12.2 gm/dL (11.4-16.0); Lymphocytes # (A) 1.3 k/uL (1.0-4.8); Lymphocytes % (A) 19 %; MCH 29.4 pg (25.0-35.0); MCHC 32.7 g/dL (31.0-37.0); Mean Platelet Volume 7.8; Monocytes # (A) 0.5 k/uL (0-1.0); Monocytes % (A) 7 %; Neutrophils # (A) 4.8 k/uL (1.3-7.7); Neutrophils % (A) 70 %; Platelet Count 211 k/uL (150-450); RBC 4.16 m/uL (3.80-5.40); RDW 14.6 % (11.5-15.5); WBC 6.9 k/uL (3.8-10.6)
[2023-04-28 21:33] LABS: Partial Thromboplastin Time 37.2 sec (22.0-30.0)
--- NOTE | 2023-04-28 21:44 | US ---
EXAMINATION TYPE: US venous doppler duplex LE RT DATE OF EXAM: 04/28/2023 8:21 PM COMPARISON: NONE CLINICAL INDICATION: Female, 78 years old with history of pain; Bruising to right leg SIDE PERFORMED: Right TECHNIQUE: The lower extremity deep venous system is examined utilizing real time linear array sonog telma with graded compression, doppler sonography and color-flow sonography. VESSELS IMAGED: Common Femoral Vein Deep Femoral Vein Greater Saphenous Vein * Femoral Vein Popliteal Vein Small Saphenous Vein * Proximal Calf Veins (* superficial vessels) Right Leg: Negative for DVT, Grayscale, color doppler, spectral doppler imaging performed of the emerson p veins of the lower extremities. There is normal flow, compressibility, vascular waveforms. Subcutaneous edema throughout the leg. IMPRESSION: 1. No evidence for deep vein thrombosis. 2. Subcutaneous edema.
[2023-04-28 22:17] LABS: Albumin 4.5 g/dL (3.5-5.0); Calcium 9.9 mg/dL (8.4-10.2); Potassium 4.3 mmol/L (3.5-5.1); Total Bilirubin 1.6 mg/dL (0.2-1.3); Total Protein 7.3 g/dL (6.3-8.2)
[2023-04-28 22:44] VITALS: BP 144/84; PULSE 57; TEMP 97.7
== END 2023-04-28 22:44 | disposition home or self-care (01) ==
LOC: EC 19:36
DX: S80.11XA Contusion of right lower leg, initial encounter (principal); I89.0 Lymphedema, not elsewhere classified; I48.91 Unspecified atrial fibrillation; E78.5 Hyperlipidemia, unspecified; I10 Essential (primary) hypertension; M19.90 Unspecified osteoarthritis, unspecified site; Z86.73 Personal history of transient ischemic attack (TIA), and cerebral infarction without residual deficits; Z79.01 Long term (current) use of anticoagulants; Z79.1 Long term (current) use of non-steroidal anti-inflammatories (NSAID); Z79.899 Other long term (current) drug therapy; Z88.5 Allergy status to narcotic agent; X58.XXXA Exposure to other specified factors, initial encounter
CPT/HCPCS: 36415; 80053; 83036; 85025; 85610; 85730; 99284

== ENCOUNTER → 2023-10-29 | Outpatient (CLI) | payer MEDICARE, BC ==
[2023-10-29 16:18] LABS: ALT 21 U/L (8-44); AST 24 U/L (13-35); Albumin 4.7 g/dL (3.8-4.9); Albumin/Globulin Ratio 1.96 Ratio (1.60-3.17); Alkaline Phosphatase 74 U/L (41-126); BUN/Creat Ratio 27.38 Ratio (12.00-20.00); Blood Urea Nitrogen 35.6 mg/dL (9.0-27.0); Calcium 10.8 mg/dL (8.7-10.3); Carbon Dioxide 23.8 mmol/L (21.6-31.8); Chloride 102 mmol/L (96-109); Globulin 2.4 g/dL (1.6-3.3); Glucose 100 mg/dL (70-110); LDL Cholesterol,Calculated 89.6 mg/dL (0.0-131.0); Potassium 4.4 mmol/L (3.5-5.5); Sodium 142 mmol/L (135-145); Total Bilirubin 1.5 mg/dL (0.3-1.2); Total Protein 7.1 g/dL (6.2-8.2)
[2023-10-29 19:59] LABS: Digoxin 0.9 ng/mL (0.8-2.0)
== END | disposition home or self-care (01) ==
LOC: LABWHC1 08:15
PROVIDERS: ATTEND Internal Medicine Interventional Cardiology
DX: I10 Essential (primary) hypertension (principal); I48.11 Longstanding persistent atrial fibrillation; E78.2 Mixed hyperlipidemia
CPT/HCPCS: 36415; 80053; 80061; 80162

== ENCOUNTER → 2024-05-10 | Outpatient (CLI) | payer MEDICARE, BC ==
[2024-05-10 15:51] LABS: ALT 24 U/L (8-44); AST 32 U/L (13-35); Albumin 5.1 g/dL (3.8-4.9); Albumin/Globulin Ratio 1.89 Ratio (1.60-3.17); Alkaline Phosphatase 82 U/L (41-126); BUN/Creat Ratio 18.08 Ratio (12.00-20.00); Blood Urea Nitrogen 21.7 mg/dL (9.0-27.0); Calcium 10.5 mg/dL (8.7-10.3); Carbon Dioxide 23.6 mmol/L (21.6-31.8); Chloride 102 mmol/L (96-109); Globulin 2.7 g/dL (1.6-3.3); Glucose 120 mg/dL (70-110); LDL Cholesterol,Calculated 94.3 mg/dL (0.0-131.0); Potassium 4.3 mmol/L (3.5-5.5); Sodium 141 mmol/L (135-145); Total Bilirubin 1.4 mg/dL (0.3-1.2); Total Protein 7.8 g/dL (6.2-8.2)
== END | disposition home or self-care (01) ==
LOC: LABWHC1 09:43
PROVIDERS: ATTEND Internal Medicine Interventional Cardiology
DX: E78.2 Mixed hyperlipidemia (principal)
CPT/HCPCS: 36415; 80053; 80061

== ENCOUNTER → 2024-11-05 | Outpatient (CLI) | payer MEDICARE, BC ==
[2024-11-05 19:04] LABS: BUN/Creat Ratio 23.55 Ratio (12.00-20.00); Blood Urea Nitrogen 25.9 mg/dL (9.0-27.0); Calcium 10.2 mg/dL (8.7-10.3); Carbon Dioxide 23.7 mmol/L (21.6-31.8); Chloride 103 mmol/L (96-109); Glucose 118 mg/dL (70-110); Potassium 4.4 mmol/L (3.5-5.5); Sodium 140 mmol/L (135-145)
[2024-11-05 19:13] LABS: INR 2.13 sec (0.93-1.11)
[2024-11-05 20:14] LABS: Basophils # (A) 0.04 X 10*3/uL (0.00-0.10); Basophils % (A) 0.6 %; Eosinophils # (A) 0.16 X 10*3/uL (0.04-0.35); Eosinophils % (A) 2.2 %; HCT 39.3 % (37.2-46.3); HGB 12.7 g/dL (12.0-15.0); Lymphocytes # (A) 1.23 X 10*3/uL (0.90-5.00); Lymphocytes % (A) 16.9 %; MCH 30.8 pg (27.0-32.0); MCHC 32.3 g/dL (32.0-37.0); MCV 95.2 FL (80.0-97.0); Mean Platelet Volume 11.2 FL (9.5-12.2); Monocytes # (A) 0.58 X 10*3/uL (0.20-1.00); NRBC Per 100 WBC 0 X 10*3/uL (0.00-0.01); Neutrophils # (A) 5.22 X 10*3/uL (1.80-7.70); Neutrophils % (A) 71.7 %; Platelet Count 244 X 10*3/uL (140-440); RBC 4.13 X 10*6/uL (4.10-5.20); WBC 7.27 X 10*3/uL (4.50-10.00)
== END | disposition home or self-care (01) ==
LOC: LABPAT 11:37
PROVIDERS: ATTEND Orthopaedic Surgery
DX: Z01.812 Encounter for preprocedural laboratory examination (principal); M19.011 Primary osteoarthritis, right shoulder; Z22.322 Carrier or suspected carrier of Methicillin resistant Staphylococcus aureus
CPT/HCPCS: 36415; 80048; 85025; 85610; 87070

== ENCOUNTER 2024-11-17 11:16 | Day surgery (SDC) | payer BC, MEDICARE ==
--- NOTE | 2024-11-15 08:45 | P.HPOR ---
History of Present Illness H&P Date: 11/15/24 Chief Complaint: Right shoulder pain and weakness The patient is a 79-year-old retired female who presents with progressive right shoulder pain and weakness with past couple of years. It's worsened this year. She is having pain with any attempted overhead use and at night. She also notes significant weakness. She's tried medications in addition to injections with only temporary partial relief. 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 PSORIASIS History of Any Multi-Drug Resistant Organisms: None Reported Past Surgical History: Hysterectomy, Joint Replacement, Orthopedic Surgery (Left total shoulder arthroplasty, left total knee replacement), Pacemaker Additional Past Surgical History / Comment(s): BILAT TKA, 09-02-16 TOTAL RT HIP. LT SHOULDER SX. BILAT CATARACTS. COLONOSCOPY Past Anesthesia/Blood Transfusion Reactions: Motion Sickness Additional Past Anesthesia/Blood Transfusion Reaction / Comment(s): VERTIGO Type of Cardiac Device: Permanent Pacemaker Device Placement Date:: 1996 Past Psychological History: No Psychological Hx Reported Past Alcohol Use History: None Reported Past Drug Use History: None Reported - Past Family History Mother Family Medical History: No Reported History Sister(s) Family Medical History: Cancer Father Family Medical History: No Reported History Additional Family Medical History / Comment(s): ELECTROCUTED AT AGE 38 Medications and Allergies Home Medications Medication Instructions Recorded Confirmed Type Atorvastatin [Lipitor] 80 mg PO HS 08/30/15 12/07/19 History Digoxin [Digitek] 125 mcg PO DAILY 08/30/15 12/07/19 History Losartan/Hydrochlorothiazide 1 tab PO HS 08/30/15 12/07/19 History [Losartan-Hctz 100-25 mg Tab] Warfarin Sodium 2.5 mg PO WE 08/30/15 12/07/19 History Warfarin [Coumadin] 5 mg PO SUMOTUTHFRSA 08/30/15 12/07/19 History Calcipotriene 1 applicate TOPICAL MOTUWETHFR 11/29/19 12/07/19 History Clobetasol Propionate [Temovate 1 applic TOPICAL SUSA 11/29/19 12/07/19 History 0.05% Cream] Ezetimibe [Zetia] 10 mg PO DAILY 11/29/19 12/07/19 History Meloxicam 15 mg PO DAILY 11/29/19 12/07/19 History Metoprolol Tartrate [Lopressor] 50 mg PO BID 11/29/19 12/07/19 History traMADol HCl [Ultram] 50 mg PO BID 11/29/19 12/07/19 History Hydrocodone/Acetaminophen [Tully 1 each PO Q6HR PRN #28 tab 12/08/19 Rx 5-325] Sennosides-Docusate Sodium 2 each PO HS PRN #0 tab 12/08/19 Rx [Senokot-S] Allergies Allergy/AdvReac Type Severity Reaction Status Date / Time codeine Allergy Rash/Hives Verified 04/28/23 19:57 Physical Examination - Shoulder right Appearance: effusion Tenderness with palpation: anterior, bicipital groove Pain: with abduction, with forward flexion ROM: forward flexion: 40 degrees (Actively, 110 passively) ROM: internal rotation: 0 ROM: external rotation: 40 degrees Crepitus with motion: Yes Strength: abduction: 4/5 Strength: external rotation: 4/5 Tests: internal impingement tests: positive, external impingment tests: positive Results She is a well-developed well-nourished vishal approximately 5 foot 3, 185 pounds of endomorphic habitus. HEENT exam is nonfocal, neck is supple. She is tender about the anterior right glenohumeral joint. She has moderate crepitus. She has significant weakness and limitation of motion. Her distal neurovascular exam appears intact in the right upper extremity. - Diagnostic results Shoulder x-ray: image reviewed (X-rays of the right shoulder obtained in the office show severe glenohumeral joint osteoarthrosis with [id number] changes. Diminished humeral head to acromial distance is noted.) Assessment and Plan Assessment: Right severe glenohumeral joint osteoarthrosis/rotator cuff arthropathy Atrial fibrillation on anticoagulation Plan: I talked to the patient at length regarding her condition along with treatment options. At this point she is quite symptomatic having both pain and weakness despite conservative measures. After a thorough discussion she opts to proceed with surgery. We will plan to proceed with a reverse right total shoulder arthroplasty. Risks and benefits were discussed at length in layman's terms.
[2024-11-15 13:56] VITALS: BMI 33.6
[~2024-11-17 11:16] MED LIST changes: -ACETAMINOPHEN TAB 500 MG TAB PO ONE; -DEXAMETHASONE SOD PHOSPHATE 10 MG/ML 1 ML VIAL IV ONE; -HYDROmorphone 0.5 MG/0.5 ML SYRINGE IVP PRN; -LIDOCAINE 1% 20 ML VIAL (10MG/ML) FOR IV START INTRADERMA PRN; -MELOXICAM 7.5 MG TAB PO ONE; -MIDAZOLAM 2 MG/2 ML VIAL IV PRN; -ONDANSETRON 4 MG/2 ML VIAL IVP ONE; -SCOPOLAMINE 1.5MG/72HR PATCH TRANSDERM ONE; +TRANEXAMIC 1,000 MG/100ML-NACL 1,000 MG in SALINE 1 100ML.BAG IVPB PRN; -TRANEXAMIC ACID 1,000 MG in SODIUM CHLORIDE 0.9% 100 ML IVPB ONE; +fentaNYL (PF) 50 MCG/ML 2 ML AMP IV PRN
[2024-11-17] MEDS: IV FLUID CONTINUATION 1,000 ML IV ONE (11:42)
[2024-11-17] MEDS: MELOXICAM 7.5 MG TAB PO PRN (12:14)
[2024-11-17] MEDS: ACETAMINOPHEN TAB 500 MG TAB PO PRN (12:14)
[2024-11-17] MEDS: ONDANSETRON 4 MG/2 ML VIAL IVP STA (12:17)
[2024-11-17] MEDS: DEXAMETHASONE SOD PHOSPHATE 4 MG/ML 1 ML VIAL IVP STA (12:18)
[2024-11-17 12:24] LABS: INR 1.2 (<1.2); Partial Thromboplastin Time 26.7 sec (22.0-30.0); Prothrombin Time 12.9 sec (10.0-12.5)
[2024-11-17] MEDS: MIDAZOLAM 2 MG/2 ML VIAL IV STA (12:50)
[2024-11-17] MEDS ORDERED: fentaNYL (PF) 50 MCG/ML 2 ML AMP ONE (13:00)
[2024-11-17] MEDS ORDERED: PROPOFOL 10 MG/ML 20 ML VIAL IV ONE (13:00)
[2024-11-17] MEDS ORDERED: ePHEDrine 50 MG/ML 1 ML VIAL ONE (13:00)
[2024-11-17] MEDS ORDERED: PHENYLEPHRINE 10 MG/ML VIAL ONE (13:00)
[2024-11-17] MEDS ORDERED: WATER FOR INJECTION, STERILE 10 ML VIAL IV ONE (13:00)
[2024-11-17] MEDS ORDERED: TRANEXAMIC 1,000 MG/100ML-NACL PREMIX BAG ONE (13:00)
[2024-11-17] MEDS ORDERED: LIDOCAINE 1% INJ 10MG/ML (20 ML MDV) ONE (13:00)
[2024-11-17] MEDS ORDERED: ROPIVACAINE 5 MG/ML 30 ML VIAL ONE (13:00)
[2024-11-17] MEDS ORDERED: SUCCINYLCHOLINE CHLORIDE 200 MG/10 ML VIAL IV ONE (13:00)
[2024-11-17] MEDS: ceFAZolin 1,000 MG in SODIUM CHLORIDE 0.9% 1,000 ML IRRIGATION ONE (13:03)
[2024-11-17] MEDS ORDERED: ONDANSETRON 4 MG/2 ML VIAL IVP PRN (14:54)
[2024-11-17] MEDS ORDERED: HYDROcodone/APAP 5-325MG 1 EACH TAB PO PRN (14:54)
[2024-11-17] MEDS ORDERED: hydrOXYzine pamoate 25 MG CAP PO PRN (14:54)
[2024-11-17] MEDS ORDERED: HYDROmorphone 0.5 MG/0.5 ML SYRINGE IVP PRN (14:54)
[2024-11-17] MEDS ORDERED: SENNOSIDES-DOCUSATE SODIUM 1 EACH TAB PO PRN (14:54)
--- NOTE | 2024-11-17 14:57 | P.ANPRN ---
Procedure Note - Anesthesia - Nerve Block Performed Right Interscalene Single Time Out Performed: Yes (2030) Date of Procedure: 11/17/24 Procedure Start Time: 12:51 Procedure Stop Time: 12:54 Location of Patient: PreOp Indication: Acute Post-Operative Pain, Requested by Surgeon Specifically requested for management of pain by : See Youngblood Sedation Type: Sedate with meaningful contact maintained Preparation: Sterile Prep Position: Supine Catheter: None Needle Types: Pajunk Needle Gauge: 21 Ultrasound used to visualize needle placement: Yes Ultrasound used to observe medication spread: Yes Injectate: 0.5% Ropivacaine (see comment for volume) (30cc) Blood Aspirated: No Pain Paresthesia on Injection Noted: No Resistance on Injection: Normal Image Stored and Saved: Yes Events: Uneventful and Well Tolerated
--- NOTE | 2024-11-17 15:08 | P.OP ---
Date of Procedure: 11/17/24 Preoperative Diagnosis: Right severe glenohumeral joint osteoarthrosis/rotator cuff arthropathy Postoperative Diagnosis: Same Procedure(s) Performed: Right reverse total shoulder arthroplasty Implants: DePuy delta xtend size 8 press-fit humeral stem with a size 8 body, 36+6 mm articular surface, 36 mm glenosphere with standard baseplate. Anesthesia: [facility] Surgeon: See Youngblood Power Transformer Repairer #1: David Holley Estimated Blood Loss (ml): 150 Pathology: none sent Condition: stable Disposition: PACU Indications for Procedure: The patient is a 79-year-old female who presents with progressive right shoulder pain and weakness despite conservative measures. A discussion of the risks and benefits of operative intervention versus continued conservative measures was made with the patient. She opted to proceed with surgery. Operative risks include infection, neurovascular injury, development of blood clots, fracture, possible component loosening/failure, possible instability, and possible need for subsequent procedures was discussed. Informed consent was obtained. Operative Findings: As below Description of Procedure: The patient was brought to the operating room, and after induction of general anesthesia was placed in a beachchair position. The bony prominences were appropriately padded. I examined the right shoulder. There was moderate lack of passive forward elevation and external rotation. The right upper extremity was prepped and draped in normal fashion. The bony outlines the coracoid process, distal clavicle, and acromion were outlined with a skin marker. A pulse centimeter deltopectoral incision was made lateral to the coracoid process. Skin was incised sharply. Subcutaneous tissues were divided bluntly. Electrocautery was used for hemostasis. The cephalic vein was identified and gently retracted laterally with the deltoid. The deltopectoral was bluntly developed. Subdeltoid adhesions were then released. The self-retaining retr actor was placed. The conjoined tendon was retracted medially and the deltoid laterally. The biceps was identified. Its sheath was opened. A biceps tenotomy was performed along the remaining tendon did retract distally. Pseudocapsule was excised. A subscapularis peel was performed. The anterior capsule was then released off the humeral neck sharply. The head was then exposed. The shoulder was dislocated. A starting hole was made in line with the humeral shaft. The canal was reamed by hand up to size 8. There was good distal chatter. The cutting guide was then placed. I planned on 20 of retroversion. The humeral head cut was then made. The bone was removed in one fragment. Residual inferomedial osteophytes were removed flush with the beaver cortical bone. Attention was then paid towards preparing the glenoid. An anterior and posterior retractors placed. The labrum was released from the 12-6 o'clock position. Remaining biceps was removed as well. A guidepin was placed in the inferior aspect of the glenoid with the guide slightly tilting inferior. The reamer was used down to a bleeding bony surface. The central peg hole was drilled. The standard baseplate was inserted with good purchase. The inferior and superior locking screws the appropriate length were placed. Good purchase was obtained. The 36 mm glenosphere was inserted over a guidewire. This was fully seated. Care was taken to avoid any soft tissue interposition. Attention was then paid towards preparing the proximal humerus. The appropriate broach was placed and 20 of retroversion and was fully seated. An eccentric size 1 epiphyseal reamer was utilized. A size 8 stem with a size 1 epiphysis was placed and 20 of retroversion. Trial reduction was obtained with a 36 mm + 6 articular surface. The shoulder was taken through range of motion. He was felt to be stable in flexion and extension with internal and external rotation. I felt there was adequate religion of soft tissue tension judging off the conjoined tendon. The shoulder was gently dislocated. The trial components were then removed. The final size 8 press-fit stem along with a size 8 body was fully seated. There was good rotational stability. The 36 mm + 6 articular surface was impacted. The shoulder again was gently reduced and taken through range of motion. Again it was felt to be stable in all planes. Pulsatile lavage was utilized. The subscapularis was a attached to the lesser tuberosity with #2 Ethibond suture. The deltopectoral interval was closed with interrupted 2-0 Vicryl sutures. The skin was reapproximated with 3-0 subcuticular Prolene suture. Steri-Strips were applied. A sterile dressing was applied. A sling was placed. The patient was awoken from general anesthesia and transferred to recovery room in good condition. Blood loss was estimated at 150 mL. No complications were incurred. Sponge and needle counts were correct at the end of the case. David SCALES assisted during the major components of the case to include exposure, glenoid and humeral preparation, implantation, and closure.
--- NOTE | 2024-11-17 15:36 | XR ---
EXAMINATION TYPE: XR shoulder limited RT DATE OF EXAM: 11/17/2024 3:30 PM COMPARISON: None CLINICAL INDICATION: Female, 79 years old with history of s/p reverse right total shoulder arthroplas ty; PHH, pain TECHNIQUE: XR shoulder limited RT; examined in frontal and lateral views. FINDINGS: Shoulder arthroplasty with hardware intact. Subcutaneous lucencies compatible with recent surgery. No evidence for fracture. Hardware appears in tact The remaining portions of the visualized chest are unremarkable. IMPRESSION: Post shoulder arthroplasty, no evidence for immediate postop complication. [facility], , 11/17/2024 3:33 PM
[2024-11-17] MEDS: LACTATED RINGERS 1,000 ML IV SCH (17:28)
[2024-11-17 17:33] LABS: Basophils % (A) 0 %; Eosinophils # (A) 0.1 k/uL (0-0.7); Eosinophils % (A) 1 %; HCT 37.7 % (34.0-46.0); HGB 12.7 gm/dL (11.4-16.0); Lymphocytes # (A) 0.7 k/uL (1.0-4.8); Lymphocytes % (A) 5 %; MCH 31.3 pg (25.0-35.0); MCHC 33.8 g/dL (31.0-37.0); MCV 92.5 fL (80.0-100.0); Mean Platelet Volume 7.5; Monocytes # (A) 0.2 k/uL (0-1.0); Monocytes % (A) 2 %; Neutrophils # (A) 12.3 k/uL (1.3-7.7); Neutrophils % (A) 92 %; Platelet Count 204 k/uL (150-450); RBC 4.07 m/uL (3.80-5.40); RDW 13.6 % (11.5-15.5); WBC 13.4 k/uL (3.8-10.6)
[2024-11-17] MEDS: WARFARIN 5 MG TAB PO ONE (18:19)
[2024-11-17] MEDS: METOPROLOL TARTRATE 50 MG TAB PO SCH (21:21)
[2024-11-17] MEDS: EZETIMIBE 10 MG TAB PO SCH (21:21)
[2024-11-17] MEDS: ATORVASTATIN 80 MG TAB PO SCH (21:21)
[2024-11-17] MEDS: HYDROcodone/APAP 5-325MG 1 EACH TAB PO PRN (22:01)
[2024-11-18] MEDS: HYDROmorphone 0.5 MG/0.5 ML SYRINGE IVP PRN (05:38)
[2024-11-18 08:45] VITALS: BP 152/76; PULSE 64; RESP 18; TEMP 98.3
[2024-11-18 09:08] LABS: INR 1.1 (<1.2); Prothrombin Time 12.2 sec (10.0-12.5)
[2024-11-18] MEDS: LOSARTAN-HCTZ 50-12.5 MG 1 EACH TAB PO SCH (10:27)
[2024-11-18] MEDS: DIGOXIN 125 MCG TAB PO SCH (10:28)
[2024-11-18] MEDS: MELOXICAM 7.5 MG TAB PO SCH (10:45)
--- NOTE | 2024-11-18 11:50 | P.CONS ---
History of Present Illness - Reason for Consult Consult date: 11/18/24 Medical management Requesting physician: See Youngblood - Chief Complaint Right reverse total shoulder arthroplasty - History of Present Illness This is a 79-year-old female with past medical history significant for atrial fibrillation, CVA/TIA, hyperlipidemia, hypertension, osteoarthritis, psoriasis, permanent pacemaker, former nicotine dependence ,progressive right shoulder pain secondary to osteoarthritis, failed outpatient treatment,status post right reverse total shoulder arthroplasty. Tolerated procedure well. Wearing a shoulder sling. INR 1.1. Digoxin level 0.4 good diet intake with no nausea vomiting or diarrhea. Passing flatus, no bowel movement. Denies chest pain, palpitations or shortness of breath. Pain controlled. Denies lightheadedness, dizziness or focal deficits. Review of Systems Review of Systems Constitutional: Denied any fatigue denied any fever. Cardio vascular: denied any chest pain, palpitations Gastrointestinal denied any nausea vomiting Pulmonary: Denied any shortness of breath cough Neurologic denied any new focal deficits ROS Statement: Those systems with pertinent positive or pertinent negative responses have been documented in the HPI. ROS Other: All systems not noted in ROS Statement are negative. Past Medical History Past Medical History: Atrial Fibrillation, CVA/TIA, Hearing Disorder / Deafness, Hyperlipidemia, Hypertension, Memory Impairment, Osteoarthritis (OA), Skin Disorder Additional Past Medical History / Comment(s): CVA-08/2010-lt side slightly weaker then rt side. Pt feels she has "A little memory loss." Hx Vertigo. lymphedema to bilat legs-pt wears a Lymphapress for 1 hour in the AM and 1 hour in the PM. PSORIASIS History of Any Multi-Drug Resistant Organisms: None Reported Past Surgical History: Hysterectomy, Joint Replacement, Orthopedic Surgery, Pacemaker Additional Past Surgical History / Comment(s): BILAT TKA, 09-02-16 TOTAL RT HIP. Colonoscopy. LT SHOULDER SX. BILAT CATARACTS. COLONOSCOPY Past Anesthesia/Blood Transfusion Reactions: No Reported Reaction, Motion Sickness Additional Past Anesthesia/Blood Transfusion Reaction / Comm: VERTIGO. No hx of blood transfusion to date. Type of Cardiac Device: Permanent Pacemaker Device Placement Date:: 1996 Past Psychological History: No Psychological Hx Reported Smoking Status: Former smoker Past Alcohol Use History: None Reported Additional Past Alcohol Use History / Comment(s): SMOKES FROM AGE [age] THEN QUIT, less 1ppd Past Drug Use History: None Reported - Past Family History Mother Family Medical History: No Reported History Sister(s) Family Medical History: Cancer Additional Family Medical History / Comment(s): Brain cancer Father Family Medical History: No Reported History Additional Family Medical History / Comment(s): ELECTROCUTED AT AGE 38 Medications and Allergies Home Medications Medication Instructions Recorded Confirmed Type Atorvastatin [Lipitor] 80 mg PO HS 08/30/15 11/17/24 History Digoxin [Digitek] 125 mcg PO QAM 08/30/15 11/17/24 History Losartan/Hydrochlorothiazide 1 tab PO QAM 08/30/15 11/17/24 History [Losartan-Hctz 100-25 mg Tab] Warfarin Sodium 2.5 mg PO WE 08/30/15 11/17/24 History Warfarin [Coumadin] 5 mg PO SUMOTUTHFRSA 08/30/15 11/17/24 History Ezetimibe [Zetia] 10 mg PO HS 11/29/19 11/17/24 History Meloxicam 15 mg PO QAM 11/29/19 11/17/24 History Metoprolol Tartrate [Lopressor] 50 mg PO BID 11/29/19 11/17/24 History Acetaminophen(Unknown Dose) 1 dose PO HS 11/15/24 11/17/24 History Allergies Allergy/AdvReac Type Severity Reaction Status Date / Time codeine Allergy Rash/Hives Verified 11/17/24 11:42 Physical Exam Vitals: Vital Signs Temp Pulse Pulse Resp BP BP Pulse Ox 11/18/24 07:06 98.3 F 64 18 152/76 95 11/18/24 00:53 97.6 F 59 L 17 133/72 94 L 11/17/24 22:03 94 L 11/17/24 19:48 97.5 F L 60 16 126/74 95 11/17/24 18:00 65 127/73 11/17/24 17:45 60 116/68 11/17/24 17:30 64 133/61 11/17/24 17:15 75 135/82 11/17/24 17:00 61 128/66 11/17/24 16:45 60 129/77 96 11/17/24 16:30 61 147/54 90 L 11/17/24 16:12 54 L 16 139/71 95 11/17/24 15:57 58 L 16 147/73 95 11/17/24 15:42 61 16 151/69 98 11/17/24 15:27 56 L 16 169/67 99 11/17/24 15:13 74 11/17/24 15:12 97.3 F L 16 154/74 99 11/17/24 12:57 52 L 14 165/73 97 11/17/24 12:08 97.3 F L 57 L 18 176/74 99 Intake and Output 11/17/24 11/18/24 11/18/24 22:59 06:59 14:59 Intake Total 50 Balance 50 Intake: IV 50 Other: Voiding Method Toilet Toilet # Voids 1 2 Weight 86.2 kg PHYSICAL EXAM: VITAL SIGNS: As above GENERAL: Sitting up in bed, no acute distress HEENT: Conjunctivae normal. eyes normal. Oral mucosa moist NECK: No JVD. No thyroid enlargement. No LNs. Right shoulder sling present. CARDIOVASCULAR: S1, S2 regular. No murmur RESPIRATION: Breath sounds diminished in the bases. No rhonchi or crackles. No bronchial breathing. ABDOMEN: Soft, nontender . No guarding. no masses palpable. No ascites, No hepatosplenomegaly.Bowel sounds heard. PSYCHIATRY: Alert and oriented X3, mood and affect normal. NERVOUS SYSTEM: Cranial N 2-12 grossly normal. No focal deficits. Strength and sensation grossly intact. Skin: no rash Lymphatic system. No LN neck axilla. Results CBC & Chem 7: 11/17/24 17:14 Labs: Abnormal Lab Results - Last 24 Hours (Table) 11/17/24 11/17/24 Range/Units 12:04 17:14 WBC 13.4 H (3.8-10.6) k/uL Neutrophils # 12.3 H (1.3-7.7) k/uL Lymphocytes # 0.7 L (1.0-4.8) k/uL PT 12.9 H (10.0-12.5) sec INR 1.2 H (<1.2) Assessment and Plan Assessment: Right shoulder arthroplasty Chronic atrial fibrillation Pacemaker History of CVA, TIA Hyperlipidemia Hypertension psoriasis Former nicotine dependence Vertigo Plan: Continue on current medication regime ,monitoring and symptomatic treatment. Home meds had been reviewed and resumed accordingly. Pain management as per orthopedic surgery. Daily PT/INRs- anticoagulation with Coumadin. Follow-up with PCP in one week. The impression and plan of care has been dictated as directed. : I performed a history and examination of this patient, discussed the same with the dictator. I agree with the dictator's note ,documented as a scribe. Any additional findings or plans will be noted.
--- NOTE | 2024-11-18 12:15 | P.DS ---
Providers Date of admission: 11/17/2024 Expected date of discharge: 11/18/24 Attending physician: See Youngblood Consults: 11/17/24 14:54 Consult Physician Routine Consulting Provider: Kt Hernandez Consult Reason/Comments: medical management s/p reverse right total shoulder arthroplasty Do you want consulting provider notified?: Yes Primary care physician: Kt Hernandez Hospital Course: Date of admission: 11/17/2024 Date of discharge: 11/18/2024 Admission diagnosis: Right severe glenohumeral joint osteoarthrosis/rotator cuff arthropathy Discharge diagnosis: same Attending physician: Dr. Youngblood Surgical procedures: Reverse right total shoulder arthroplasty Brief history: Patient is a 71-year-old female with a history of right severe glenohumeral joint osteoarthrosis/rotator cuff arthropathy. At this point patient has failed conservative treatment measures and has opted to proceed with a elective reverse right total shoulder arthroplasty. Hospital course: Details of patient's surgery can be found in operative report. Patient tolerated the procedure well and was subsequently transported to orthopedic floor. Patient's orthopeidc and medical care was provided daily. Patient had daily laboratory tests performed for evaluation of overall blood counts. Patient had daily physical therapy to include strengthening range of motion as well as education with walker ambulation. Patient was treated with warfarin for their postoperative DVT prophylaxis during their inpatient stay. Patient was noted to have a relatively uneventful postoperative course. Patient reported satisfactory pain control with oral pain medications by postoperative day 1. Patient showed satisfactory progress with physical therapy. Patient moved steadily through the program and had no difficulty meeting the goals by postoperative day 1. Given patient's otherwise satisfactory course and having met physical therapy goals, plan is to discharge patient home on postoperative day 1. Discharge condition/disposition: Patient will be discharged home in stable condition. Discharge medications: Instructions are given on resumption of patient's normal daily medications per primary care recommendation, in addition patient will be prescribed Henefer; senna; resume warfarin once home. If you have any questions about warfarin contact Dr. Dale. Orthopedic Discharge Instructions: 1. Wound care and infection precautions, keep incision dry and covered while showering, no lotions, creams, moisturizers. No soaking, pools, hot tubs. Do not scrub over incision. 2. Non-weight bearing right upper extremity until follow-up. 3. Ice when necessary. Do not exceed 20 minutes per hour with ice pack. 4. Utilize sling to right upper extremity until seen at first follow up appointment. 5. Pain meds and anticoagulants per prescription. 6. Pain medication has potential to cause constipation. Increase oral fluid and fiber intake. Contact primary care provider if you have not had a bowel movement within 48 hours after discharge. 7. No anti-inflammatory medication until discussed at first post operative visit, this including Motrin, Aleve, Mobic, Diclofenac. 8. Follow up in office at 2 weeks postop with Checo Valenzuela PA-C / David Holley PA-C 9. Follow up with your primary care doctor 7-10 days after discharge. 10. Contact [facility] with any questions, . Keep incision clean, dry, intact. While showering, cover steri-strips with Saran wrap. Keep fusion tape on until follow-up appointment in office in 2 weeks. Assessment: Right severe glenohumeral joint osteoarthrosis/rotator cuff arthropathy Procedures: Reverse right total shoulder arthroplasty Patient Condition at Discharge: Good Plan - Discharge Summary Discharge Rx Participant: No New Discharge Prescriptions: New HYDROcodone/APAP 5-325MG [Henefer 5-325] 1 tab PO Q6HR PRN #28 tab PRN Reason: Pain Sennosides/Docusate Sodium [Senna Plus 8.6-50 mg Softgel] 1 each PO DAILY #20 capsule No Action Warfarin Sodium 2.5 mg PO WE Warfarin [Coumadin] 5 mg PO SUMOTUTHFRSA Losartan/Hydrochlorothiazide [Losartan-Hctz 100-25 mg Tab] 1 tab PO QAM Digoxin [Digitek] 125 mcg PO QAM Atorvastatin [Lipitor] 80 mg PO HS Metoprolol Tartrate [Lopressor] 50 mg PO BID Ezetimibe [Zetia] 10 mg PO HS Meloxicam 15 mg PO QAM Acetaminophen(Unknown Dose) 1 dose PO HS Discharge Medication List Atorvastatin [Lipitor] 80 mg PO HS 08/30/15 [History] Digoxin [Digitek] 125 mcg PO QAM 08/30/15 [History] Losartan/Hydrochlorothiazide [Losartan-Hctz 100-25 mg Tab] 1 tab PO QAM 08/30/15 [History] Warfarin Sodium 2.5 mg PO WE 08/30/15 [History] Warfarin [Coumadin] 5 mg PO SUMOTUTHFRSA 08/30/15 [History] Ezetimibe [Zetia] 10 mg PO HS 11/29/19 [History] Meloxicam 15 mg PO QAM 11/29/19 [History] Metoprolol Tartrate [Lopressor] 50 mg PO BID 11/29/19 [History] Acetaminophen(Unknown Dose) 1 dose PO HS 11/15/24 [History] HYDROcodone/APAP 5-325MG [Henefer 5-325] 1 tab PO Q6HR PRN #28 tab 11/18/24 [Rx] Sennosides/Docusate Sodium [Senna Plus 8.6-50 mg Softgel] 1 each PO DAILY #20 capsule 11/18/24 [Rx] Follow up Appointment(s)/Referral(s): David Holley, SEVEN [PHYSICIAN PROGRAMMING EQUIPMENT OPERATOR] - 2 Weeks Patient Instructions/Handouts: Shoulder Arthroplasty (DC) Activity/Diet/Wound Care/Special Instructions: Orthopedic Discharge Instructions: 1. Wound care and infection precautions, keep incision dry and covered while showering, no lotions, creams, moisturizers. No soaking, pools, hot tubs. Do not scrub over incision. 2. Non-weight bearing right upper extremity until follow-up. 3. Ice when necessary. Do not exceed 20 minutes per hour with ice pack. 4. Utilize sling to right upper extremity until seen at first follow up appointment. 5. Pain meds and anticoagulants per prescription. 6. Pain medication has potential to cause constipation. Increase oral fluid and fiber intake. Contact primary care provider if you have not had a bowel movement within 48 hours after discharge. 7. No anti-inflammatory medication until discussed at first post operative visit, this including Motrin, Aleve, Mobic, Diclofenac. 8. Follow up in office at 2 weeks postop with Checo Valenzuela PA-C / David Holley PA-C 9. Follow up with your primary care doctor 7-10 days after discharge. 10. Contact [facility] with any questions, . Keep incision clean, dry, intact. While showering, cover steri-strips with Saran wrap. Keep fusion tape on until follow-up appointment in office in 2 weeks. Discharge Disposition: HOME WITH HOME HEALTH SERVICES
--- NOTE | 2024-11-18 12:27 | P.PN ---
Subjective Progress Note Date: 11/18/24 Principal diagnosis: Right severe glenohumeral joint osteoarthrosis/rotator cuff arthropathy Patient was seen at bedside this morning lying in semirecumbent position with sling present throughout upper extremity and bulky dressing present over right shoulder. Patient says her pain is well-controlled with oral medication. Patient states she has been up walking several times since surgery yesterday without issue. Patient states she has been urinating since surgery without issue. Patient says when she does go home her will be able to help her out there. Patient normally takes Coumadin which is prescribed by Dr. Dale and patient to resume Coumadin at home for DVT prophylaxis. Patient denies any numbness tingling down the right upper extremity. Patient says she is hoping to go home later today. Patient denies any other orthopedic complaints at this time. Objective - Vital Signs Vital signs: Vital Signs Temp 98.3 F 11/18/24 07:06 Pulse 64 11/18/24 07:06 Resp 18 11/18/24 07:06 BP 152/76 11/18/24 07:06 Pulse Ox 95 11/18/24 07:06 FiO2 Intake & Output 11/17/24 11/18/24 11/18/24 18:59 06:59 18:59 Intake Total 601 Output Total 150 Balance 451 Weight 86.2 kg Intake: IV 601 Output: Estimated Blood Loss 150 Other: Voiding Method Toilet # Voids 2 - Labs CBC & Chem 7: 11/17/24 17:14 Labs: Abnormal Lab Results - Last 24 Hours (Table) 11/17/24 11/17/24 Range/Units 12:04 17:14 WBC 13.4 H (3.8-10.6) k/uL Neutrophils # 12.3 H (1.3-7.7) k/uL Lymphocytes # 0.7 L (1.0-4.8) k/uL PT 12.9 H (10.0-12.5) sec INR 1.2 H (<1.2)
[2024-11-18] MEDS: PANTOPRAZOLE 40 MG/10 ML VIAL IVP SCH (12:33)
[2024-11-18] MEDS ORDERED: WARFARIN 5 MG TAB PO ONE (18:00)
== END 2024-11-18 12:43 | disposition home health service (06) ==
LOC: OR 11:16 → 4SSUR 14:58 → OR 11-18 12:43
PROVIDERS: ATTEND Orthopaedic Surgery
DX: M19.011 Primary osteoarthritis, right shoulder (principal); I48.20 Chronic atrial fibrillation, unspecified; E78.5 Hyperlipidemia, unspecified; I10 Essential (primary) hypertension; L40.9 Psoriasis, unspecified; Z96.612 Presence of left artificial shoulder joint; Z90.710 Acquired absence of both cervix and uterus; Z86.73 Personal history of transient ischemic attack (TIA), and cerebral infarction without residual deficits; Z95.0 Presence of cardiac pacemaker; Z96.611 Presence of right artificial shoulder joint; Z96.653 Presence of artificial knee joint, bilateral; Z79.1 Long term (current) use of non-steroidal anti-inflammatories (NSAID); Z79.899 Other long term (current) drug therapy; Z88.5 Allergy status to narcotic agent; Z79.01 Long term (current) use of anticoagulants
CPT/HCPCS: 64415; 80162; 85025; 85610 ×2; 85730; 73020; 23472; C1776; J2250; J1100; J0690 ×3; J2405; J1171

== ENCOUNTER → 2024-12-10 | Outpatient (CLI) | payer MEDICARE ==
[2024-12-10 15:15] LABS: ALT 17 U/L (8-44); AST 23 U/L (13-35); Albumin 4.5 g/dL (3.8-4.9); Alkaline Phosphatase 77 U/L (41-126); BUN/Creat Ratio 16.08 Ratio (12.00-20.00); Blood Urea Nitrogen 19.3 mg/dL (9.0-27.0); Calcium 9.7 mg/dL (8.7-10.3); Carbon Dioxide 22.8 mmol/L (21.6-31.8); Chloride 102 mmol/L (96-109); Chol/HDL Ratio 5.02 Ratio; Globulin 2.5 g/dL (1.6-3.3); Glucose 117 mg/dL (70-110); LDL Cholesterol,Calculated 76.5 mg/dL (0.0-131.0); Potassium 4.6 mmol/L (3.5-5.5); Sodium 139 mmol/L (135-145); Total Bilirubin 1.1 mg/dL (0.3-1.2)
[2024-12-10 15:24] LABS: Hepatitis B Surface AB- Quant 3.5 mIU/mL
[2024-12-10 15:32] LABS: Hepatitis B Surface Antigen Nonreactive (Nonreactive)
[2024-12-10 16:26] LABS: Digoxin 1.1 ng/mL (0.8-2.0)
[2024-12-10 21:47] LABS: HGB 10.8 g/dL (12.0-15.0); MCH 29.3 pg (27.0-32.0); MCV 97.6 FL (80.0-97.0); Mean Platelet Volume 10.6 FL (9.5-12.2); NRBC Per 100 WBC 0 X 10*3/uL (0.00-0.01); Platelet Count 271 X 10*3/uL (140-440); RBC 3.69 X 10*6/uL (4.10-5.20); RDW 14.9 % (11.5-14.5)
[2024-12-10 21:48] LABS: Basophils # (A) 0.03 X 10*3/uL (0.00-0.10); Basophils % (A) 0.5 %; Eosinophils # (A) 0.19 X 10*3/uL (0.04-0.35); Monocytes # (A) 0.54 X 10*3/uL (0.20-1.00); Monocytes % (A) 8.6 %; Neutrophils # (A) 4.32 X 10*3/uL (1.80-7.70); Neutrophils % (A) 68.6 %
== END | disposition home or self-care (01) ==
LOC: LABWHC1 09:34
PROVIDERS: ATTEND Internal Medicine Interventional Cardiology
DX: I48.11 Longstanding persistent atrial fibrillation (principal); E78.2 Mixed hyperlipidemia; L40.0 Psoriasis vulgaris
CPT/HCPCS: 36415; 80053; 80061; 80162; 85025; 86480; 86704; 86706; 87340

== ENCOUNTER → 2025-05-07 | Outpatient (CLI) | payer MEDICARE ==
[2025-05-08 00:38] LABS: Carbon Dioxide 26.6 mmol/L (21.6-31.8); Chloride 104 mmol/L (96-109); Potassium 4.7 mmol/L (3.5-5.5); Sodium 141 mmol/L (135-145)
[2025-05-08 06:31] LABS: HCT 37.8 % (37.2-46.3); HGB 11.8 g/dL (12.0-15.0); MCH 29.4 pg (27.0-32.0); MCHC 31.2 g/dL (32.0-37.0); MCV 94.3 FL (80.0-97.0); Mean Platelet Volume 11.7 FL (9.5-12.2); NRBC Per 100 WBC 0 X 10*3/uL (0.00-0.01); Platelet Count 210 X 10*3/uL (140-440); RBC 4.01 X 10*6/uL (4.10-5.20); RDW 14.4 % (11.5-14.5); WBC 6.63 X 10*3/uL (4.50-10.00)
== END | disposition home or self-care (01) ==
LOC: LABPAT 09:46
PROVIDERS: ATTEND Internal Medicine Clinical Cardiac Electrophysiology
DX: R00.1 Bradycardia, unspecified (principal); I48.0 Paroxysmal atrial fibrillation; Z95.0 Presence of cardiac pacemaker
CPT/HCPCS: 80051; 82565; 85027

== ENCOUNTER 2025-05-23 12:38 | Day surgery (SDC) | payer MEDICARE ==
[2025-05-19 15:36] VITALS: BMI 33.6
[~2025-05-23 12:38] MED LIST changes: -TRANEXAMIC 1,000 MG/100ML-NACL 1,000 MG in SALINE 1 100ML.BAG IVPB PRN; +VANCOMYCIN IV PER PHARMACY 1 EACH MISC MISCELLANE PRN; -fentaNYL (PF) 50 MCG/ML 2 ML AMP IV PRN
[2025-05-23] MEDS: SODIUM CHLORIDE 0.9% 1,000 ML IV SCH (13:23)
[2025-05-23] MEDS ORDERED: VANCOMYCIN IV PER PHARMACY 1 EACH MISC MISCELLANE PRN (13:35)
[2025-05-23] MEDS: VANCOMYCIN 1,000 MG in SODIUM CHLORIDE 0.9% 250 ML IVPB STA ×2 (13:46→22:05)
[2025-05-23] MEDS: IV FLUID CONTINUATION 1,000 ML IV ONE (14:00)
[2025-05-23 14:16] LABS: INR 2.5 (<1.2); Prothrombin Time 25.1 sec (10.0-12.5)
[2025-05-23 14:19] LABS: ALT 21 U/L (4-34); AST 27 U/L (14-36); African American GFR (CKD) 56 (>60 ml/min/1.73 sqM); Albumin 4.8 g/dL (3.5-5.0); Alkaline Phosphatase 82 U/L (38-126); Anion Gap 12 mmol/L; Blood Urea Nitrogen 28 mg/dL (7-17); Calcium 10.3 mg/dL (8.4-10.2); Carbon Dioxide 23 mmol/L (22-30); Chloride 104 mmol/L (98-107); Glucose 118 mg/dL (74-99); Non-African American GFR(CKD) 49 (>60 ml/min/1.73 sqM); Potassium 4.6 mmol/L (3.5-5.1); Sodium 139 mmol/L (137-145); Total Bilirubin 2.1 mg/dL (0.2-1.3); Total Protein 7.4 g/dL (6.3-8.2)
[2025-05-23] MEDS ORDERED: fentaNYL (PF) 50 MCG/ML 2 ML AMP ONE (17:10)
[2025-05-23] MEDS ORDERED: MIDAZOLAM 2 MG/2 ML VIAL ONE (17:10)
[2025-05-23] MEDS: ceFAZolin 1 GM in SODIUM CHLORIDE 0.9% IRRIG BTL 250 ML IRRIGATION PRN (17:38)
[2025-05-23] MEDS: ROPIVACAINE 5 MG/ML 30 ML VIAL MISCELLANE ONE (17:47)
[2025-05-23] MEDS: LIDOCAINE 1% INJ 10MG/ML (20 ML MDV) SQ ONE (17:47)
[2025-05-23] MEDS ORDERED: ACETAMINOPHEN TAB 325 MG TAB PO PRN (19:40)
[2025-05-23] MEDS ORDERED: RISANKIZUMAB RZAA 150 MG/ML SQ SCH (19:45)
--- NOTE | 2025-05-23 19:56 | P.EPPROC ---
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 Written informed consent was obtained prior to the procedure. Conscious sedation provided by CHILD ABUSE WORKER. IV antibiotics administered including IV vancomycin preoperatively and Kefzol intraoperatively. Local anesthesia administered. A 4 cm incision made in the pectoral area. Subfascial pocket made. Venous accesses obtained in the left axillary vein. Venous sheaths placed. Leads placed in the right heart. Previously the atrial lead had been capped. The atrial lead was freed to allow for access into the axillary venous system. During the procedure RV pacing was performed via the chronic can. A His bundle sheath was prepped. A coronary sinus decapolar catheter was placed within this sheath. The catheter along with the sheath was then passed into the right heart, the catheter was prolapsed across the tricuspid valve, into the right ventricle and then further into the right ventricular outflow tract across the pulmonic valve into the pulmonary artery. This sheath was slid over this decapolar catheter into the RVOT. Thereafter the catheter last sheath assembly was withdrawn from the RVOT along the septum to the mid septal area. The sheath was appropriately to to map the right ventricular aspect of the septum. The decapolar catheter was withdrawn, the sheath flushed again and the screw-in pacing lead placed within the sheath. Further detailed unipolar pace-mapping of the septum was performed and once the appropriate based morphology was obtained on lead V1, the lead was screwed into the septum. The lead was screwed in 4-5 returns at a time while monitoring the current of injury, the pacing impedance changes and the paced QRS morphology. The stimulus to peak of V6 QRS was measured at each step. Once a QR or rSR pattern of paced QRS in lead V1 was obtained, a left bundle signal was sought. Impedance was measured and thresholds were measured. An impedance drop of 100-200 ohms but above 550 ohms was targeted along with an unchanged vector of the current of injury signal. The final positioning was based on the QRS morphology in lead V1 and a short stimulus to peak of the V6 QRS of less than 90 ms. The sheath was withdrawn, stability of the pacing lead deep in the septum was confirmed on VU and MARISOL views and the sheath was slipped and an adequate heel was provided for the lead. Unipolar and bipolar electrogram morphology obtained Left bundle lead parameters: Paced morphology was a QR morphology, QRS width about 150 ms right bundle branch block type Time for peak activation in lead V6 and in lead I was 73-75 ms in the unipolar tip Left bundle bipolar had similar time to activation of 73 ms Unipolar ring pacing revealed a wide QRS. Time to activation and lead V6 was 116 ms and in lead I, 133 ms RV pacing revealed activation time of 136 ms in V6 and 110 ms in lead I Intrinsic QRS was narrow with time 2 activation of 41 ms in lead V6 and 45 ms in lead I Device medical receptionist biller: [email or web address] biventricular pacemaker, Percepta HAMMER DRIVER-P Biventricular pacemaker device connected to the leads and placed in the subfascial pocket Patient tolerated the procedure well without acute complications Pacemaker programming VVIR 60-130 bpm, LV RV offset of 80 ms
[2025-05-23] MEDS: carvediloL 12.5 MG TAB PO SCH (20:23)
[2025-05-23] MEDS: EZETIMIBE 10 MG TAB PO SCH (20:23)
[2025-05-23] MEDS: WARFARIN 5 MG TAB PO SCH (21:32)
[2025-05-23] MEDS: amLODIPine 5 MG TAB PO SCH (21:32)
[2025-05-23] MEDS: ACETAMINOPHEN IV (For NPO) 1,000 MG in EMPTY BAG 1 BAG IVPB ONE (23:21)
[2025-05-24 02:21] VITALS: PULSE 80
[2025-05-24 03:45] LABS: INR 2.2 (<1.2); Prothrombin Time 21.7 sec (10.0-12.5)
[2025-05-24 07:30] VITALS: BP 113/76; RESP 17; TEMP 97.5
[2025-05-24] MEDS: DIGOXIN 125 MCG TAB PO SCH (08:54)
[2025-05-24] MEDS: MELOXICAM 7.5 MG TAB PO SCH (08:54)
[2025-05-24] MEDS: ATORVASTATIN 80 MG TAB PO SCH (08:54)
[2025-05-24] MEDS: LOSARTAN-HCTZ 50-12.5 MG 1 EACH TAB PO SCH (08:54)
--- NOTE | 2025-05-24 10:38 | XR ---
EXAMINATION TYPE: XR chest 2V DATE OF EXAM: 05/24/2025 9:36 AM COMPARISON: None CLINICAL INDICATION: Female, 80 years old with history of Lead placement check, , TECHNIQUE: Frontal and lateral views FINDINGS: Heart mildly enlarged. Left anterior chest wall pacemaker generator with right atrial and 2 right espinoza tricular leads. Mild perihilar density. No vipul consolidation or pleural effusion. No appreciable pn eumothorax. Partially visualized bilateral shoulder arthroplasties. IMPRESSION: 1. Left anterior chest wall pacemaker generator with a right atrial and right ventricular leads. No a ppreciable pneumothorax. 2. Mild cardiomegaly. Possible mild pulmonary vascular congestion. [facility], Workstation: [id number], 05/24/2025 10:36 AM
--- NOTE | 2025-05-24 11:00 | P.DS ---
Providers Attending physician: Hayden Mccoy Primary care physician: Kt [facility] Course: Discharge summary Patient is doing well. 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 Paced QRS had a QR morphology Time to peak activation in lead V6 was about 73 ms, bipolar Time to peak activation in lead I was 73 ms, bipolar Plan Stop metoprolol Stop amlodipine Continue digoxin Continue losartan hydrochlorothiazide Start carvedilol 12.5 mg twice daily Device programmed to VVIR 60-130 ppm, LV-RV offset of 80 ms to promote left bundle pacing and avoid RV pacing Follow-up in the device clinic in 1 week Plan - Discharge Summary Discharge Rx Participant: No New Discharge Prescriptions: New carvediloL [Coreg*] 12.5 mg PO BID-W/MEALS #180 tab Acetaminophen Tab [Tylenol] 650 mg PO Q6HR PRN tab PRN Reason: Mild Pain (Scale 1 To 3) Discontinued Meloxicam 15 mg PO QAM carvediloL 12.5 mg PO BID No Action Warfarin Sodium 2.5 mg PO WESA Warfarin [Coumadin] 5 mg PO SUMOTUTHFR Losartan/Hydrochlorothiazide [Losartan-Hctz 100-25 mg Tab] 1 tab PO QAM Digoxin [Digitek] 125 mcg PO QAM Atorvastatin [Lipitor] 80 mg PO QAM Ezetimibe [Zetia] 10 mg PO HS Ferrous Sulfate [Iron] 1 dose PO HS Calcipotriene (Unknown Dose) 1 dose TOPICAL QAM Clobetasol Propionate [Temovate 0.05% Oint] 1 applic TOPICAL SUSA PRN PRN Reason: psoriasis Risankizumab-Rzaa [Skyrizi Pen] 150 mg SQ DIRECTED Acetaminophen(Unknown Dose) 1 dose PO HS PRN PRN Reason: Insomnia Discharge Medication List Atorvastatin [Lipitor] 80 mg PO QAM 08/30/15 [History] Digoxin [Digitek] 125 mcg PO QAM 08/30/15 [History] Losartan/Hydrochlorothiazide [Losartan-Hctz 100-25 mg Tab] 1 tab PO QAM 08/30/15 [History] Warfarin Sodium 2.5 mg PO WESA 08/30/15 [History] Warfarin [Coumadin] 5 mg PO SUMOTUTHFR 08/30/15 [History] Ezetimibe [Zetia] 10 mg PO HS 11/29/19 [History] Ferrous Sulfate [Iron] 1 dose PO HS 04/14/25 [History] Risankizumab-Rzaa [Skyrizi Pen] 150 mg SQ DIRECTED 05/10/25 [History] Acetaminophen(Unknown Dose) 1 dose PO HS PRN 05/19/25 [History] Calcipotriene (Unknown Dose) 1 dose TOPICAL QAM 05/19/25 [History] Clobetasol Propionate [Temovate 0.05% Oint] 1 applic TOPICAL SUSA PRN 05/19/25 [History] Acetaminophen Tab [Tylenol] 650 mg PO Q6HR PRN tab 05/24/25 [Rx] carvediloL [Coreg*] 12.5 mg PO BID-W/MEALS #180 tab 05/24/25 [Rx] Follow up Appointment(s)/Referral(s): Hayden Mccoy MD [STAFF PHYSICIAN] - 05/30/25 3:30 pm (FOLLOW UP APPOINTMENT MADE WITH THE DEVICE CLINIC. ) Activity/Diet/Wound Care/Special Instructions: PATIENT EDUCATION MATERIAL Instructions following a heart rhythm device implant. 1. Keep dressing DRY for 5 DAYS. You may cover the area with Saran or Cling Wrap, prior to a shower. 2. The dressing will be removed in the Device Clinic at [facility]. Absorbable sutures were used to close the wound. 3. Avoid raising the left arm above the shoulder level. 4 week restriction 4. Avoid arm movements, like backscratching, rubbing the head, or pulling on a cord. 4 weeks restriction 5. Gentle range of motion movements of the shoulder, closest to the incision should be performed to avoid a frozen shoulder. (Pendulum exercises of the shoulder) 6. The opposite arm may be used freely. 7. Avoid driving for 7 days. 8. Avoid activities such as golfing, swimming, weed whacking, lifting more than 10 pounds weight, bowling, gymnastics and weight training/lifting. (6 weeks restriction) 9. Activities such as wood chopping with an axe, pull-ups in the gymnasium, power lifting, arc-welding, being close to home induction cooktops will always be a problem. 10. Arm sling is only a reminder not to raise the arm above the head. You do not need to keep the arm completely immobilized. Your free to move the arm and use it and for normal activities. In case of any problems, please call [facility], @ [phone], Attention: Device Clinic Device clinic follow-up in 5 days Follow-up with primary grain unloader in 2-3 months
[2025-05-25] MEDS ORDERED: WARFARIN 2.5 MG TAB PO SCH (18:00)
== END 2025-05-24 11:38 | disposition home health service (06) ==
LOC: CATHEP 12:38 → EEVIPCON 12:38 → 6NMEDSUR 19:15 → CATHEP 05-24 11:38
PROVIDERS: ATTEND Internal Medicine Clinical Cardiac Electrophysiology
DX: I48.21 Permanent atrial fibrillation (principal); I42.8 Other cardiomyopathies; I50.9 Heart failure, unspecified; I11.0 Hypertensive heart disease with heart failure; E78.5 Hyperlipidemia, unspecified; Z72.0 Tobacco use; Z45.010 Encounter for checking and testing of cardiac pacemaker pulse generator [battery]; Z45.018 Encounter for adjustment and management of other part of cardiac pacemaker; Z88.5 Allergy status to narcotic agent; Z79.01 Long term (current) use of anticoagulants; Z79.899 Other long term (current) drug therapy
CPT/HCPCS: 33207; 33233; 80053; 84443; 85610 ×2; 71046; C1769 ×2; C2621; C1730; C1887; C1892; C1898; J2250; J3370; J0690; J2003; J3010; J2795